=== PATIENT | male | born 1950 | race Caucasian/White ===

== ENCOUNTER 2018-10-31 09:30 | Inpatient (IN) | payer BC, MEDICAID ==
[~2018-10-31] VITALS: Ht 180.3 cm; Wt 95.6 kg
[~2018-10-31 09:30] MED LIST: LORA10CA7 PO; LORA10TA58 PO; OMEP20TA44 PO; PANT40TA2 PO
[2018-10-31] MEDS ORDERED: SODIUM CHLORIDE 0.9% 1,000 ML IV ONE (09:42)
[2018-10-31] MEDS ORDERED: AMIODARONE HCL 150 MG in D5W 5% 100 ML IV ONE (09:45)
[2018-10-31 09:56] LABS: Basophils # (auto) 0.1 uL; Basophils % (auto) 0.6 % (0.0-2.0); Eosinophils # (auto) 0.1 uL; Eosinophils % (auto) 0.6 % (0.0-7.0); Hemoglobin 16.4 g/dL (13.5-17.5); Lymphocytes # (auto) 1.4 uL; Lymphocytes % (auto) 15.4 % (10.0-50.0); Mean Corpuscular Hemoglobin 31.2 pg (28.0-32.0); Mean Corpuscular Volume 89.3 fL (80.0-100.0); Monocytes # (auto) 0.7 uL; Monocytes % (auto) 7.8 % (0.0-12.0); Neutrophils # (auto) 7.1 uL; Neutrophils % (auto) 75.6 % (37.0-80.0); Platelet Count (auto) 273 10^3/uL (140-450); Red Blood Cells 5.26 10^6/uL (4.5-5.90); Red Cell Distribution Width 13.6 % (11.8-14.3); White Blood Cell 9.4 10^3/uL (4.4-10.8)
[2018-10-31] MEDS ORDERED: AMIODARONE HCL 900 MG in DEXTROSE 500 ML IV SCH (10:00)
[2018-10-31 10:10] LABS: INR 0.97 (0.9-1.15); Partial Thromboplastin Time 26.5 sec (23.78-33.04); Prothrombin Time 10.4 sec (9.27-12.13)
[2018-10-31 10:14] LABS: Albumin 4.1 g/dL (3.4-5.0); Calcium 9.1 mg/dL (8.5-10.1); Potassium 4.2 mmol/L (3.5-5.1)
[2018-10-31] MEDS ORDERED: ASPirin 81 mg TAB PO ONE (10:15)
[2018-10-31 10:23] LABS: BUN/Creatinine Ratio 10.3; Total Protein 7.4 g/dL (6.4-8.2)
[2018-10-31] MEDS ORDERED: MORPHINE SULF INJ 2 MG/ML SYRINGE 1ML IV PRN ×2 (11:30)
[2018-10-31] MEDS ORDERED: METOPROLOL TARTRATE 25 MG TAB PO ONE (11:30)
[2018-10-31] MEDS ORDERED: HYDROcodone-ACET 5/325MG TAB PO PRN (11:30)
[2018-10-31] MEDS ORDERED: hydrALAZINE HCL 20 MG/ML VL IV PRN (11:30)
[2018-10-31] MEDS ORDERED: NITROGLYCERIN 0.4 MG SL TAB SL PRN (11:30)
[2018-10-31] MEDS ORDERED: ONDANSETRON HCL 4 MG/2 ML VIAL IV PRN (11:30)
--- NOTE | 2018-10-31 18:15 | NUR ---
REPORT Report received from Rosendo HANDLEY, awaiting for patient to arrive into room 261.
--- NOTE | 2018-10-31 18:30 | NUR ---
RECEIVED PATIENT Received patient in room 261. Patient alert and oriented X4, able to follow commands, speech appropriate and pupils reactive to light. Sinus rhythm in the 60's, pulses palpable to upper/lower extremities with no edema observed. Abdomen soft, non tender, non distended with bowel sounds present. Last bowel movement 10/31/2018 in AM per patient. IV to the left forearm 20g: good blood return and flushes easily infusing Amiodarone at 1 mg per MD orders. Skin intact. Will continue to monitor patient.
[2018-10-31 18:50] VITALS: BP 137/82
[2018-10-31 19:50] VITALS: BP 131/77
[2018-10-31] MEDS: ACETAMINOPHEN 500 MG TAB PO PRN (20:03)
[2018-10-31 21:00] VITALS: BP 141/85
[2018-10-31] MEDS: METOPROLOL TARTRATE 25 MG TAB PO SCH (21:24)
[2018-10-31] MEDS: ATORVASTATIN 20 MG TAB PO SCH (21:25)
[2018-10-31 22:00] VITALS: BP 147/76
[2018-11-01] VITALS (8 sets, daily range): BP systolic 118–138; BP diastolic 68–85
[2018-11-01 06:06] LABS: Basophils # (auto) 0 uL; Basophils % (auto) 0.3 % (0.0-2.0); Calcium 8.5 mg/dL (8.5-10.1); Eosinophils # (auto) 0.1 uL; Eosinophils % (auto) 1.8 % (0.0-7.0); Hematocrit 40.6 % (41.0-53.0); Hemoglobin 14.3 g/dL (13.5-17.5); INR 1.01 (0.9-1.15); Lymphocytes # (auto) 1.3 uL; Lymphocytes % (auto) 19.1 % (10.0-50.0); Mean Corpuscular Hemoglobin 31.4 pg (28.0-32.0); Mean Corpuscular Hgb Conc. 35.3 g/dL (32.0-36.0); Mean Corpuscular Volume 89.1 fL (80.0-100.0); Monocytes # (auto) 0.6 uL; Monocytes % (auto) 9.6 % (0.0-12.0); Neutrophils # (auto) 4.6 uL; Neutrophils % (auto) 69.2 % (37.0-80.0); Partial Thromboplastin Time 25.5 sec (23.78-33.04); Platelet Count (auto) 202 10^3/uL (140-450); Potassium 3.9 mmol/L (3.5-5.1); Prothrombin Time 10.8 sec (9.27-12.13); Red Blood Cells 4.56 10^6/uL (4.5-5.90); Red Cell Distribution Width 13.5 % (11.8-14.3); White Blood Cell 6.7 10^3/uL (4.4-10.8)
[2018-11-01 06:10] LABS: BUN/Creatinine Ratio 14.4
[2018-11-01 06:29] LABS: Magnesium 2.4 mg/dL (1.6-2.6)
--- NOTE | 2018-11-01 07:30 | NUR ---
Opening Shift Note Assumed care of patient, awake and alert, lying down on the bed watching TV. No S/S of distress/SOB or chest pain. Instructed on POC and to call for assist PRN, will continue to monitor for changes Q1hr and PRN.
--- NOTE | 2018-11-01 08:30 | NUR ---
Patient having breakfast on the bed, will continue to monitor.
--- NOTE | 2018-11-01 09:30 | NUR ---
Friends came and visited patient at this time.
[2018-11-01] MEDS: PANTOPRAZOLE 40 MG/10 ML VIAL IV SCH (09:48)
[2018-11-01] MEDS: METOPROLOL TARTRATE 25 MG TAB PO SCH ×2 (09:48→21:48)
[2018-11-01] MEDS: LISINOPRIL 10 MG TAB PO SCH (09:49)
[2018-11-01] MEDS: ASPirin-EC 81 mg tab PO SCH (09:49)
--- NOTE | 2018-11-01 10:36 | NUR ---
Patient walked ti the restroom with standby assist, no complaining of chest pain noted.
--- NOTE | 2018-11-01 12:20 | NUR ---
While patient is sleeping, his HR 55-60/min. While he is walking or wake up. his HR around 75-95/min with SR. Will continue to monitor.
--- NOTE | 2018-11-01 12:50 | NUR ---
Dr Collazo at bedside, updated on patient's status. Patient seen and examined. Received verbal order to transfer patient to Telemetry floor. Orders read back and verified. Will carry out.
--- NOTE | 2018-11-01 14:00 | NUR ---
Patient lying on the bed, no complaining of chest pain, walk to restroom occasionally, no accident noted. Will continue to monitor, His inside the room with patient, they made aware about transfer to Tele when a room available.
--- NOTE | 2018-11-01 14:50 | NUR ---
Print out and gave the information about angiogram and angiogram care after to patient and his for education at this time.
--- NOTE | 2018-11-01 16:40 | NUR ---
Patient went to the restroom, no complaining of chest pain then went back to the bed, HR 75, BP 132/85, Room air O2 saturation 98%.
[2018-11-01] MEDS: ACETAMINOPHEN 500 MG TAB PO PRN (17:04)
--- NOTE | 2018-11-01 17:06 | NUR ---
patient complained that he had a headache, medication given, take time to answer all his concern, patient verbalized understanding. Will continue plan of care.
--- NOTE | 2018-11-01 18:10 | NUR ---
ICU patient trans to floor [facility] transferred to [facility] via wheelchair on tele no. 20. All patient medications and personal belongings transferred with patient to receiving floor. Patient care transferred to [facility]. NOTE: []
--- NOTE | 2018-11-01 18:13 | NUR ---
Telemetry admit [facility] admitted to Telemetry unit after SBAR received. Patient oriented to Marissa Ma, primary RN, unit, room, bed, and unit policies regarding patient care and visiting hours. Patient now on continuous telemetry monitoring, tele box # 20 and telemetry reading on arrival to unit is SINUS RHYHTM. Pt denies need for bedside o2 at this time, VSS. Pt weighed by bedscale and encouraged to call if they need something. All questions and concerns addressed, patient verbalized understanding. No s/s of distress or sob noted, pt denies any pain at this time.
--- NOTE | 2018-11-01 19:00 | NUR ---
Patient care endorsed endorsed care to Paola boyce. Patient sitting up in bed eating dinner. No s/s of acute distress or sob noted. Call light within reach.
--- NOTE | 2018-11-01 19:33 | NUR ---
RECEIVED PATIENT FROM DAY SHIFT RN. PATIENT RESTING IN BED. NO S/S OF DISTRESS NOTED. DENIED PAIN FOR NOW. REINFORCED PATIENT NPO AFTER MIDNIGHT FOR PROCEDURE TOMORROW. POC INSTRUCTED AND ENCOURAGED PATIENT TO CALL FOR WINDOWS SYSTEMS ADMINISTRATOR IF NEEDED. BED IN LOWEST POSITION WITH SIDE RAILS UP X 2. CALL LINDA WITHIN REACH. ALARM ON. CONTINUE OT MONITOR FOR CHANGES Q1H AND PRN.
--- NOTE | 2018-11-01 21:14 | NUR ---
2ND IV insertion PER PROTOCOL IV access obtained, via clean sterile technique by inserting [22] gauge catheter at [RFA] after [1] attempt(s). IV secured properly. No trauma to site. Patient tolerated well. NOTE: []
[2018-11-01] MEDS: ATORVASTATIN 20 MG TAB PO SCH (21:47)
[2018-11-02 05:00] VITALS: BP 123/77
--- NOTE | 2018-11-02 06:05 | NUR ---
OSVALDOG WIPER DONE. GOWN CHANGED. PATIENT TOLERATED WELL. CONTINUE CARE.
--- NOTE | 2018-11-02 07:00 | NUR ---
Opening Shift Note Assumed care of patient from NOC RN. Patient is awake and alert. No S/S of distress/SOB or pain. Bed in lowest, locked position with side rails up X2. Call frankel within reach. Instructed on POC and to call for assist PRN, will continue to monitor for changes Q1hr and PRN.
[2018-11-02 08:41] VITALS: BP 132/81
[2018-11-02] MEDS: METOPROLOL TARTRATE 25 MG TAB PO SCH ×2 (09:49→21:50)
[2018-11-02] MEDS: ASPirin-EC 81 mg tab PO SCH (09:50)
[2018-11-02] MEDS: PANTOPRAZOLE 40 MG/10 ML VIAL IV SCH (09:51)
[2018-11-02] MEDS: LISINOPRIL 10 MG TAB PO SCH (09:51)
--- NOTE | 2018-11-02 11:00 | NUR ---
Plant Operations Manager Patient transported to Plant Operations Manager via hospital bed without incident.
--- NOTE | 2018-11-02 12:00 | NUR ---
Patient off unit. Addendum: 11/02/18 at 1355 by RAFAEL HAMMOND RN RN Amended: Links added.
[2018-11-02 13:08] VITALS: BP 142/77
[2018-11-02] MEDS ORDERED: VERAPAMIL 2.5MG/ML INJ 2ML VIAL IV ONE (13:50)
[2018-11-02] MEDS ORDERED: ANGIOMAX 250 MG VIAL IV ONE ×2 (13:50→14:57)
[2018-11-02] MEDS ORDERED: MIDAZOLAM HCL 1MG/1ML-2 ML VIAL ONE (13:51)
[2018-11-02] MEDS ORDERED: LIDOCAINE 2%HCL (LOCAL ANESTH.) INJ 20ML MDV ONE (13:51)
[2018-11-02] MEDS ORDERED: SODIUM CHL 0.9% 50 ML ONE ×2 (13:51→14:57)
[2018-11-02] MEDS ORDERED: fentaNYL CITRATE 100 MCG/2 ML VL ONE (13:51)
[2018-11-02] MEDS ORDERED: IOHEXOL 350 MG/ML 100ML IJ ONE (14:06)
[2018-11-02] MEDS ORDERED: CLOPIDOGREL 300 MG TAB ONE (15:04)
--- NOTE | 2018-11-02 16:00 | NUR ---
PATIENT BACK TO FLOOR S/P CARDIAC ANGIOGRAM. PATIENT TOLERATED PROCEDURE WELL. NO PAIN REPORTED AND NO SIGNS OF DISTRESS. ACCESS IS LEFT WRIST. THE SITE IS CDI. NO SIGNS OF BLEEDING. COLLAR IS CURRENTLY BEING DEFLATED AT A RATE OF 2ML PER 10 TO 15 MINUTES. WILL CONTINUE TO MONITOR SITE UNTIL THE WRIST COLLAR IS COMPLETELY DEFLATED. ENCOURAGED THE PATIENT TO CALL IF THEY NEED ANYTHING.
--- NOTE | 2018-11-02 16:57 | NUR ---
WRIST COLLAR COMPLETELY DEFLATED. NO SIGNS OF BLEEDING. COLLAR REMOVED AND TEGADERM WINDOW DRESSING PLACED TO THE LEFT WRIST. WILL CONTINUE TO MONITOR SITE. PATIENT EDUCATED ON THE SIGNS AND SYMPTOMS TO LOOK OUT FOR. PATIENT INSTRUCTED TO CALL IF ANY SIGNS APPEAR.
--- NOTE | 2018-11-02 19:00 | NUR ---
Opening Shift Note Assumed care of patient, awake and alert. No S/S of distress/SOB or pain. Instructed on POC and to call for assist PRN, will continue to monitor for changes Q1hr and PRN.
[2018-11-02] MEDS: ATORVASTATIN 20 MG TAB PO SCH (21:49)
[2018-11-02 22:00] VITALS: BP 117/69
[2018-11-03 04:55] VITALS: BP 122/68
--- NOTE | 2018-11-03 07:00 | NUR ---
Opening Shift Note Assumed care of patient, awake and alert. No S/S of distress/SOB or pain. Dressing to left wrist CDI. Instructed on POC and to call for assist PRN, will continue to monitor for changes Q1hr and PRN.
[2018-11-03 08:12] VITALS: BP 117/75
[2018-11-03] MEDS ORDERED: CLOPIDOGREL BISULFATE 75 MG TAB PO SCH (10:00)
[2018-11-03] MEDS: ASPirin-EC 81 mg tab PO SCH (10:03)
[2018-11-03] MEDS: PANTOPRAZOLE 40 MG/10 ML VIAL IV SCH (10:03)
[2018-11-03] MEDS: METOPROLOL TARTRATE 25 MG TAB PO SCH (10:04)
[2018-11-03] MEDS: LISINOPRIL 10 MG TAB PO SCH (10:04)
--- NOTE | 2018-11-03 11:44 | NUR ---
Nutrition Assessment Notes please see attached link for complete assessment Est. Needs based on BW (95 kg): 9669-0073 kcal (23-25 kcal/kgBW), 95-104 gms pro (1.0-1.1 gms/kgBW). Will continue to monitor pertinent labs and reassess nutrient need prn Addendum: 11/03/18 at [address] Amended: Links added.
[2018-11-03 11:48] VITALS: BP 113/65
[2018-11-03 16:50] VITALS: BP 117/69
--- NOTE | 2018-11-03 16:50 | NUR ---
Discharge instructions given as ordered. Encourage to follow up with PMD and Dr. Oakes as instructed. All questions and concerns addressed. Patient verbalized understanding. IV removed with catheter intact, pressure dressing applied. Telemetry unit returned to [facility]. Patient ambulated to vehicle with all personal belongings, accompanied by family member. No distress noted at time of departure.
== END 2018-11-03 16:50 | disposition home or self-care (01) | DRG 246 ==
LOC: ER 09:30 → TELE 11:18 → MERGE 11:18 → DOU IN ICU 18:29 → TELE-WESTW 11-01 18:14
PROVIDERS: ADMIT Nurse Practitioner Acute Care; ATTEND Family Medicine
PROC: 027034Z Dilation of Coronary Artery, One Artery with Drug-eluting Intraluminal Device, Percutaneous Approach (ICD-10-PCS; principal; 2018-11-02)
PROC: 4A023N7 Measurement of Cardiac Sampling and Pressure, Left Heart, Percutaneous Approach (ICD-10-PCS; 2018-11-02)
PROC: B2111ZZ Fluoroscopy of Multiple Coronary Arteries using Low Osmolar Contrast (ICD-10-PCS; 2018-11-02)
PROC: B240ZZ3 Ultrasonography of Single Coronary Artery, Intravascular (ICD-10-PCS; 2018-11-02)
DX: I21.4 Non-ST elevation (NSTEMI) myocardial infarction (principal); I50.21 Acute systolic (congestive) heart failure; I50.20 Unspecified systolic (congestive) heart failure; D68.69 Other thrombophilia; M19.90 Unspecified osteoarthritis, unspecified site; K21.9 Gastro-esophageal reflux disease without esophagitis; I25.2 Old myocardial infarction; Z82.49 Family history of ischemic heart disease and other diseases of the circulatory system; Z95.1 Presence of aortocoronary bypass graft
CPT/HCPCS: 36415; 71045; 80048; 80053; 80061; 83735; 83880; 84443; 84484; 85025; 85379; 85610; 85730; 86141; 86850; 86900; 86901; 87081; 92928; 92978; 93005; 93306; 93458; A6257; C9113; G0378; J2250; J7060

== ENCOUNTER → 2018-11-24 | Outpatient (CLI) | payer BC ==
[~2018-11-24] MED LIST changes: -LORA10TA58 PO; -OMEP20TA44 PO
[2018-11-24 10:50] LABS: Basophils # (auto) 0 uL; Basophils % (auto) 0.5 % (0.0-2.0); Eosinophils # (auto) 0.1 uL; Hematocrit 40.3 % (41.0-53.0); Hemoglobin 14.1 g/dL (13.5-17.5); Lymphocytes # (auto) 1.1 uL; Lymphocytes % (auto) 19.6 % (10.0-50.0); Mean Corpuscular Hgb Conc. 34.9 g/dL (32.0-36.0); Mean Corpuscular Volume 88.8 fL (80.0-100.0); Monocytes # (auto) 0.5 uL; Monocytes % (auto) 9.3 % (0.0-12.0); Neutrophils # (auto) 3.8 uL; Neutrophils % (auto) 68.6 % (37.0-80.0); Platelet Count (auto) 212 10^3/uL (140-450); Red Blood Cells 4.53 10^6/uL (4.5-5.90); Red Cell Distribution Width 13.1 % (11.8-14.3); White Blood Cell 5.6 10^3/uL (4.4-10.8)
[2018-11-24 11:04] LABS: INR 0.99 (0.9-1.15); Prothrombin Time 10.6 sec (9.27-12.13)
[2018-11-24 12:27] LABS: Albumin 3.9 g/dL (3.4-5.0); Calcium 8.9 mg/dL (8.5-10.1); Potassium 4.6 mmol/L (3.5-5.1)
[2018-11-24 12:30] LABS: Bilirubin, Total 1.3 mg/dL (0.2-1.0)
== END | disposition home or self-care (01) ==
LOC: LAB 10:34
PROVIDERS: ATTEND Internal Medicine
DX: Z01.810 Encounter for preprocedural cardiovascular examination (principal); I10 Essential (primary) hypertension
CPT/HCPCS: 36415; 80053; 85025; 85610

== ENCOUNTER 2018-12-01 11:12 | Inpatient (IN) | payer BC | END 2018-12-02 10:35 | disposition home or self-care (01) | LOC: CATH 11:12 → TELE-WESTW 15:26 ==

== ENCOUNTER → 2019-02-06 | Outpatient (CLI) | payer BC ==
[~2019-02-06] MED LIST changes: +ASPI-404 PO; +ATOR40TA52 PO; +CLOP75TA41 PO; +LISI-646 PO; -LORA10CA7 PO; +METO25TA5 PO; +PANT40T PO; -PANT40TA2 PO
[2019-02-06 13:07] LABS: Basophils # (auto) 0 uL; Basophils % (auto) 0.6 % (0.0-2.0); Eosinophils # (auto) 0.1 uL; Eosinophils % (auto) 1.2 % (0.0-7.0); Hematocrit 40.1 % (41.0-53.0); Hemoglobin 14.3 g/dL (13.5-17.5); Lymphocytes # (auto) 1.2 uL; Lymphocytes % (auto) 21.1 % (10.0-50.0); Mean Corpuscular Hemoglobin 31.2 pg (28.0-32.0); Mean Corpuscular Hgb Conc. 35.7 g/dL (32.0-36.0); Mean Corpuscular Volume 87.3 fL (80.0-100.0); Monocytes # (auto) 0.5 uL; Monocytes % (auto) 8.3 % (0.0-12.0); Neutrophils # (auto) 3.8 uL; Neutrophils % (auto) 68.8 % (37.0-80.0); Platelet Count (auto) 222 10^3/uL (140-450); Red Blood Cells 4.59 10^6/uL (4.5-5.90); Red Cell Distribution Width 13.2 % (11.8-14.3); White Blood Cell 5.5 10^3/uL (4.4-10.8)
[2019-02-06 13:30] LABS: Potassium 3.9 mmol/L (3.5-5.1)
[2019-02-06 13:52] LABS: Albumin 3.9 g/dL (3.4-5.0); BUN/Creatinine Ratio 13.6; Bilirubin, Total 1.3 mg/dL (0.2-1.0); Calcium 8.9 mg/dL (8.5-10.1); Total Protein 7.1 g/dL (6.4-8.2)
== END | disposition home or self-care (01) ==
LOC: LAB 12:32
PROVIDERS: ATTEND Internal Medicine
DX: K21.9 Gastro-esophageal reflux disease without esophagitis (principal); R53.83 Other fatigue; I25.10 Atherosclerotic heart disease of native coronary artery without angina pectoris
CPT/HCPCS: 36415; 80053; 84439; 84443; 85025; 86301

== ENCOUNTER → 2019-04-11 | Outpatient (CLI) | payer BC ==
[~2019-04-11] MED LIST changes: +POM PO; +SUCR1TAB38 OR
== END | disposition home or self-care (01) ==
LOC: Rad HDHVI 08:59
PROVIDERS: ATTEND Internal Medicine Cardiovascular Disease
DX: I25.119 Atherosclerotic heart disease of native coronary artery with unspecified angina pectoris (principal); R06.02 Shortness of breath
CPT/HCPCS: 93306

== ENCOUNTER → 2019-04-26 | Outpatient (CLI) | payer BC ==
[~2019-04-26] VITALS: Ht 180.3 cm; Wt 90.7 kg
[~2019-04-26] MED LIST changes: +ADENOSINE 76 MG in GIVE UN-DILUTED 0 ML IV ONE; +ADENOSINE 90 MG/30 ML INJ IV ONE
== END | disposition home or self-care (01) ==
LOC: Rad HDHVI 09:20
PROVIDERS: ATTEND Internal Medicine Cardiovascular Disease
DX: I10 Essential (primary) hypertension (principal); E78.00 Pure hypercholesterolemia, unspecified
CPT/HCPCS: 78452; 93005; 96374; 96375; A9500; J0153

== ENCOUNTER → 2019-12-07 | Outpatient (CLI) | payer BC ==
[~2019-12-07] MED LIST changes: -ADENOSINE 76 MG in GIVE UN-DILUTED 0 ML IV ONE; -ADENOSINE 90 MG/30 ML INJ IV ONE; +BUPIVACAINE HCL 0.25% P/F 10 ML VIAL ONE; +IOHEXOL 300 MG/ML 100ML BOTTLE IJ ONE; +LIDOCAINE 2%HCL (LOCAL ANESTH.) INJ 20ML MDV ONE; +methylPREDNISolone ACETATE 80 MG/ML VL ONE
== END | disposition home or self-care (01) ==
LOC: XY 09:53
PROVIDERS: ATTEND Orthopaedic Surgery
DX: M16.0 Bilateral primary osteoarthritis of hip (principal)
CPT/HCPCS: 73501; 76000; J1040; J3490; Q9967

== ENCOUNTER → 2019-12-26 | Outpatient (CLI) | payer BC ==
[~2019-12-26] MED LIST changes: -BUPIVACAINE HCL 0.25% P/F 10 ML VIAL ONE; -IOHEXOL 300 MG/ML 100ML BOTTLE IJ ONE; -LIDOCAINE 2%HCL (LOCAL ANESTH.) INJ 20ML MDV ONE; -methylPREDNISolone ACETATE 80 MG/ML VL ONE
[2019-12-26 13:39] LABS: Basophils # (auto) 0 10 ^3/uL (0-0.2); Basophils % (auto) 0.6 % (0.0-2.0); Eosinophils # (auto) 0.2 10 ^3/uL (0-0.8); Eosinophils % (auto) 3.2 % (0.0-7.0); Hematocrit 40.6 % (41.0-53.0); Hemoglobin 14.4 g/dL (13.5-17.5); Lymphocytes # (auto) 1.4 10 ^3/uL (0.4-5.4); Lymphocytes % (auto) 25.2 % (10.0-50.0); Mean Corpuscular Hemoglobin 31.3 pg (28.0-32.0); Mean Corpuscular Hgb Conc. 35.5 g/dL (32.0-36.0); Mean Corpuscular Volume 88.1 fL (80.0-100.0); Monocytes # (auto) 0.6 10 ^3/uL (0-1.3); Monocytes % (auto) 9.8 % (0.0-12.0); Neutrophils # (auto) 3.5 10 ^3/uL (1.6-8.6); Neutrophils % (auto) 61.2 % (37.0-80.0); Nucleated Red Blood Cells % 0.2 %; Platelet Count (auto) 196 10^3/uL (140-450); Red Blood Cells 4.61 10^6/uL (4.5-5.90); Red Cell Distribution Width 14.6 % (11.8-14.3); White Blood Cell 5.7 10^3/uL (4.4-10.8)
[2019-12-26 14:26] LABS: Calcium 8.7 mg/dL (8.5-10.1); Potassium 4.4 mmol/L (3.5-5.1)
[2019-12-26 14:30] LABS: Albumin 3.9 g/dL (3.4-5.0); BUN/Creatinine Ratio 15.7; Bilirubin, Total 2.4 mg/dL (0.2-1.0); Total Protein 6.8 g/dL (6.4-8.2)
== END | disposition home or self-care (01) ==
LOC: LAB 12:30
PROVIDERS: ATTEND Internal Medicine
DX: I10 Essential (primary) hypertension (principal); R53.1 Weakness; K21.9 Gastro-esophageal reflux disease without esophagitis
CPT/HCPCS: 36415; 80053; 82150; 83690; 84153; 85025; 85652

== ENCOUNTER → 2020-01-01 | Outpatient (CLI) | payer BC ==
[~2020-01-01] MED LIST changes: -ASPI-404 PO; +ASPI-543 PO; +RIVA20TA PO; +SUCR1TAB22 OR; -SUCR1TAB38 OR
== END | disposition home or self-care (01) ==
LOC: Rad HDHVI 10:47
PROVIDERS: ATTEND Internal Medicine Cardiovascular Disease
DX: I50.43 Acute on chronic combined systolic (congestive) and diastolic (congestive) heart failure (principal); I25.110 Atherosclerotic heart disease of native coronary artery with unstable angina pectoris
CPT/HCPCS: 93306

== ENCOUNTER → 2020-01-15 | Outpatient (CLI) | payer BC ==
[~2020-01-15] VITALS: Ht 180.3 cm; Wt 88.5 kg
[~2020-01-15] MED LIST changes: +ADENOSINE 74 MG in GIVE UN-DILUTED 0 ML IV ONE; +ADENOSINE 90 MG/30 ML INJ IV ONE; +ASPI-404 PO; -ASPI-543 PO; -RIVA20TA PO; -SUCR1TAB22 OR; +SUCR1TAB38 OR
== END | disposition home or self-care (01) ==
LOC: Rad HDHVI 08:28
PROVIDERS: ATTEND Internal Medicine Cardiovascular Disease
DX: I25.10 Atherosclerotic heart disease of native coronary artery without angina pectoris (principal); I10 Essential (primary) hypertension; R07.9 Chest pain, unspecified; E78.00 Pure hypercholesterolemia, unspecified; Z95.2 Presence of prosthetic heart valve; Z82.49 Family history of ischemic heart disease and other diseases of the circulatory system
CPT/HCPCS: 78452; 93005; 96374; 96375; A9500; J0153

== ENCOUNTER 2020-04-09 07:46 | Inpatient (IN) | payer BC ==
[2020-04-04 14:45] LABS: Urine WBC None Seen /hpf (0 - 3)
[2020-04-04 14:52] LABS: Urine Bacteria NONE SEEN /hpf (None Seen); Urine Blood Negative /uL (Negative); Urine Specific Gravity 1.008 (1.001-1.035)
[2020-04-04 14:54] LABS: Basophils # (auto) 0 10 ^3/uL (0-0.2); Basophils % (auto) 0.6 % (0.0-2.0); Eosinophils # (auto) 0.1 10 ^3/uL (0-0.8); Eosinophils % (auto) 2.5 % (0.0-7.0); Hematocrit 39.9 % (41.0-53.0); Hemoglobin 13.7 g/dL (13.5-17.5); Lymphocytes # (auto) 1.1 10 ^3/uL (0.4-5.4); Lymphocytes % (auto) 19.6 % (10.0-50.0); Mean Corpuscular Hemoglobin 30.4 pg (28.0-32.0); Mean Corpuscular Hgb Conc. 34.4 g/dL (32.0-36.0); Mean Corpuscular Volume 88.5 fL (80.0-100.0); Monocytes # (auto) 0.6 10 ^3/uL (0-1.3); Monocytes % (auto) 10.7 % (0.0-12.0); Neutrophils # (auto) 3.8 10 ^3/uL (1.6-8.6); Neutrophils % (auto) 66.6 % (37.0-80.0); Platelet Count (auto) 178 10^3/uL (140-450); Red Cell Distribution Width 13.3 % (11.8-14.3); White Blood Cell 5.6 10^3/uL (4.4-10.8)
[2020-04-04 15:02] LABS: INR 1.07 (0.9-1.15); Partial Thromboplastin Time 25.7 sec (23.0-31.2)
[2020-04-04 15:15] LABS: Albumin 3.7 g/dL (3.4-5.0); Calcium 8.6 mg/dL (8.5-10.1); Potassium 4.4 mmol/L (3.5-5.1)
[2020-04-04 15:19] LABS: BUN/Creatinine Ratio 12.7; Bilirubin, Total 1.5 mg/dL (0.2-1.0); Total Protein 6.2 g/dL (6.4-8.2)
[~2020-04-09] VITALS: Ht 180.3 cm; Wt 88.5 kg
[~2020-04-09 07:46] MED LIST changes: -ADENOSINE 74 MG in GIVE UN-DILUTED 0 ML IV ONE; -ADENOSINE 90 MG/30 ML INJ IV ONE; -ASPI-404 PO; -CLOP75TA41 PO; -POM PO; +RIVA20TA PO; -SUCR1TAB38 OR
[2020-04-09] MEDS ORDERED: ceFAZolin 1GM/50ML 50 ML IV ONE (09:15)
[2020-04-09] MEDS ORDERED: SUCCINYLCHOLINE CHLORIDE 20 MG/ML 10ML VIAL IV ONE (10:14)
[2020-04-09] MEDS ORDERED: LIDOCAINE 1% (LOCAL ANESTH.) PF 5ml SDV ONE (10:14)
[2020-04-09] MEDS ORDERED: MIDAZOLAM HCL 1MG/1ML-2 ML VIAL ONE (10:18)
[2020-04-09] MEDS ORDERED: ETOMIDATE (2MG/ML) 20ML VIAL IV ONE (10:19)
[2020-04-09] MEDS ORDERED: ROCURONIUM 10MG/ML 10ML VIAL IV ONE (10:19)
[2020-04-09] MEDS ORDERED: DIGOXIN (250MCG/ML) 2 ML AMPULE IV SCH (11:15)
[2020-04-09] MEDS ORDERED: MORPHINE SULF INJ 2 MG/ML SYRINGE 1ML IV PRN (11:30)
[2020-04-09] MEDS ORDERED: NITROGLYCERIN 0.4 MG SL TAB SL PRN (11:30)
[2020-04-09] MEDS: LISINOPRIL 20 MG TAB PO SCH (13:00)
[2020-04-09 16:38] VITALS: BP 116/67
[2020-04-09 21:33] VITALS: BP 140/82
[2020-04-09] MEDS: PANTOPRAZOLE 40 MG TAB PO SCH (21:34)
[2020-04-09] MEDS: ATORVASTATIN 20 MG TAB PO SCH (21:34)
[2020-04-09] MEDS: METOPROLOL TARTRATE 25 MG TAB PO SCH (21:35)
[2020-04-10 05:00] VITALS: BP 117/66
[2020-04-10 09:00] VITALS: BP 148/83
[2020-04-10] MEDS: PANTOPRAZOLE 40 MG TAB PO SCH ×2 (10:00→22:04)
[2020-04-10] MEDS: METOPROLOL TARTRATE 25 MG TAB PO SCH ×2 (10:00→22:04)
[2020-04-10] MEDS ORDERED: fentaNYL CITRATE 100 MCG/2 ML VL ONE (10:15)
[2020-04-10] MEDS ORDERED: MIDAZOLAM HCL 1MG/1ML-2 ML VIAL ONE (10:15)
[2020-04-10] MEDS ORDERED: PROPOFOL 10 MG/ML 20 ML IV ONE (10:16)
[2020-04-10] MEDS ORDERED: ETOMIDATE (2MG/ML) 20ML VIAL IV ONE (10:16)
[2020-04-10] MEDS ORDERED: DexAMETHasone SOD PHOS 10MG/1ML VIAL INJ ONE (10:16)
[2020-04-10] MEDS ORDERED: ePHEDrine SULFATE 50 MG/ML AMP ONE (10:16)
[2020-04-10] MEDS ORDERED: ROCURONIUM 10MG/ML 10ML VIAL IV ONE (10:16)
[2020-04-10] MEDS ORDERED: LIDOCAINE 2% (LOCAL ANESTH.) PF 5ml SDV ONE (10:16)
[2020-04-10] MEDS ORDERED: PHENYLEPHRINE HCL 10 MG/ML VL ONE (10:16)
[2020-04-10] MEDS ORDERED: ceFAZolin 1GM/50ML 50 ML IV ONE (10:29)
[2020-04-10] MEDS ORDERED: KETOROLAC TROMETH 30 MG/ML 1ML VIAL IV ONE (10:38)
[2020-04-10] MEDS ORDERED: GLYCOPYRROLATE 0.2 MG/ML 1ML VIAL IV ONE (10:38)
[2020-04-10] MEDS ORDERED: ONDANSETRON HCL 4 MG/2 ML VIAL IV ONE (10:38)
[2020-04-10] MEDS ORDERED: NEOSTIGMINE 1 MG/ML INJ (10mg/10ML VIAL) IV ONE (10:38)
[2020-04-10 10:40] LABS: Basophils # (auto) 0 10 ^3/uL (0-0.2); Basophils % (auto) 0.3 % (0.0-2.0); Eosinophils # (auto) 0.1 10 ^3/uL (0-0.8); Eosinophils % (auto) 1.1 % (0.0-7.0); Hematocrit 40.2 % (41.0-53.0); Hemoglobin 14.5 g/dL (13.5-17.5); Mean Corpuscular Hemoglobin 31.6 pg (28.0-32.0); Mean Corpuscular Hgb Conc. 36.1 g/dL (32.0-36.0); Mean Corpuscular Volume 87.6 fL (80.0-100.0); Monocytes # (auto) 0.4 10 ^3/uL (0-1.3); Monocytes % (auto) 7.4 % (0.0-12.0); Neutrophils # (auto) 4.1 10 ^3/uL (1.6-8.6); Neutrophils % (auto) 73.2 % (37.0-80.0); Platelet Count (auto) 157 10^3/uL (140-450); Red Blood Cells 4.58 10^6/uL (4.5-5.90); Red Cell Distribution Width 13.1 % (11.8-14.3); White Blood Cell 5.5 10^3/uL (4.4-10.8)
[2020-04-10] MEDS ORDERED: HYDROmorphone HCL 2 MG/ML VL ONE (10:54)
[2020-04-10 11:09] LABS: BUN/Creatinine Ratio 13.3; Calcium 8.5 mg/dL (8.5-10.1); Magnesium 2.4 mg/dL (1.6-2.6); Phosphorus 2.6 mg/dL (2.5-4.90)
[2020-04-10] MEDS ORDERED: HYDROmorphone HCL 2 MG/ML VL IV PRN ×2 (11:45→12:00)
[2020-04-10] MEDS ORDERED: ONDANSETRON HCL 4 MG/2 ML VIAL IV PRN ×2 (11:45→12:00)
[2020-04-10] MEDS ORDERED: ACETAMINOPHEN/CODEINE#3 (300/30mg) TAB PO PRN (11:45)
[2020-04-10] MEDS: LISINOPRIL 20 MG TAB PO SCH (12:00)
[2020-04-10] MEDS: ceFAZolin 1GM/50ML 50 ML IV SCH ×2 (14:14→22:04)
[2020-04-10 16:29] VITALS: BP 109/62
[2020-04-10 22:00] VITALS: BP 124/74
[2020-04-10] MEDS: ATORVASTATIN 20 MG TAB PO SCH (22:04)
[2020-04-11 05:00] VITALS: BP 133/73
[2020-04-11] MEDS: ceFAZolin 1GM/50ML 50 ML IV SCH (06:30)
[2020-04-11 07:21] LABS: Basophils # (auto) 0 10 ^3/uL (0-0.2); Basophils % (auto) 0.1 % (0.0-2.0); Eosinophils # (auto) 0 10 ^3/uL (0-0.8); Hematocrit 38.3 % (41.0-53.0); Hemoglobin 13.9 g/dL (13.5-17.5); Lymphocytes # (auto) 0.8 10 ^3/uL (0.4-5.4); Lymphocytes % (auto) 6.6 % (10.0-50.0); Mean Corpuscular Hemoglobin 31.7 pg (28.0-32.0); Mean Corpuscular Hgb Conc. 36.3 g/dL (32.0-36.0); Mean Corpuscular Volume 87.4 fL (80.0-100.0); Monocytes % (auto) 8.8 % (0.0-12.0); Neutrophils # (auto) 9.9 10 ^3/uL (1.6-8.6); Neutrophils % (auto) 84.5 % (37.0-80.0); Nucleated Red Blood Cells % 0.1 %; Platelet Count (auto) 182 10^3/uL (140-450); Red Blood Cells 4.38 10^6/uL (4.5-5.90); White Blood Cell 11.8 10^3/uL (4.4-10.8)
[2020-04-11 07:42] LABS: Albumin 3.3 g/dL (3.4-5.0); Calcium 8.7 mg/dL (8.5-10.1); Potassium 4.4 mmol/L (3.5-5.1)
[2020-04-11 07:47] LABS: BUN/Creatinine Ratio 14.8; Bilirubin, Total 1.4 mg/dL (0.2-1.0); Total Protein 5.8 g/dL (6.4-8.2)
[2020-04-11 09:00] VITALS: BP 126/68
[2020-04-11] MEDS: METOPROLOL TARTRATE 25 MG TAB PO SCH (09:44)
[2020-04-11] MEDS: PANTOPRAZOLE 40 MG TAB PO SCH (09:45)
[2020-04-11] MEDS: LISINOPRIL 20 MG TAB PO SCH (12:24)
[2020-04-11 13:00] VITALS: BP 122/70
[2020-04-11 16:07] VITALS: BP 122/70
== END 2020-04-11 17:00 | disposition home or self-care (01) | DRG 419 ==
LOC: SUR 07:46 → TELE-WESTW 07:47
PROVIDERS: ADMIT Surgery; ATTEND Internal Medicine
PROC: 0FT44ZZ Resection of Gallbladder, Percutaneous Endoscopic Approach (ICD-10-PCS; principal; 2020-04-10 10:38)
DX: K80.10 Calculus of gallbladder with chronic cholecystitis without obstruction (principal); I10 Essential (primary) hypertension; Z20.828 Contact with and (suspected) exposure to other viral communicable diseases; I25.10 Atherosclerotic heart disease of native coronary artery without angina pectoris; Z82.49 Family history of ischemic heart disease and other diseases of the circulatory system; Z48.89 Encounter for other specified surgical aftercare; Z90.49 Acquired absence of other specified parts of digestive tract; Z79.899 Other long term (current) drug therapy; Z79.82 Long term (current) use of aspirin; Z95.818 Presence of other cardiac implants and grafts; I48.91 Unspecified atrial fibrillation
CPT/HCPCS: 36415; 80048; 80053; 81001; 83735; 84100; 84439; 84443; 85025; 85610; 85730; 86850; 86900; 86901; G0378; J0330; J0690; J1100; J1885; J2001; J2250; J2405; J2704

== ENCOUNTER → 2020-05-15 | Outpatient (CLI) | payer BC ==
[~2020-05-15] MED LIST changes: +BUPIVACAINE HCL 0.25% P/F 10 ML VIAL ONE; +IOHEXOL 300 MG/ML 100ML BOTTLE IJ ONE; +LIDOCAINE 2%HCL (LOCAL ANESTH.) INJ 20ML MDV ONE; +methylPREDNISolone ACETATE 80 MG/ML VL ONE
== END | disposition home or self-care (01) ==
LOC: XY 09:10
PROVIDERS: ATTEND Orthopaedic Surgery Adult Reconstructive Orthopaedic Surgery
DX: M25.551 Pain in right hip (principal); Z98.890 Other specified postprocedural states; Z79.899 Other long term (current) drug therapy
CPT/HCPCS: 20610; 73502; 77002; J1040; J3490; Q9967; 76000

== ENCOUNTER → 2020-09-10 | Outpatient (CLI) | payer BC ==
[~2020-09-10] MED LIST changes: -BUPIVACAINE HCL 0.25% P/F 10 ML VIAL ONE; -IOHEXOL 300 MG/ML 100ML BOTTLE IJ ONE; -LIDOCAINE 2%HCL (LOCAL ANESTH.) INJ 20ML MDV ONE; -methylPREDNISolone ACETATE 80 MG/ML VL ONE
== END | disposition home or self-care (01) ==
LOC: Rad HDHVI 13:03
PROVIDERS: ATTEND Internal Medicine Cardiovascular Disease
DX: I25.10 Atherosclerotic heart disease of native coronary artery without angina pectoris (principal); R06.02 Shortness of breath
CPT/HCPCS: 93306

== ENCOUNTER → 2020-09-17 | Outpatient (CLI) | payer BC ==
[2020-09-17 16:43] LABS: Basophils # (auto) 0 10 ^3/uL (0-0.2); Basophils % (auto) 0.6 % (0.0-2.0); Eosinophils # (auto) 0.2 10 ^3/uL (0-0.8); Eosinophils % (auto) 2.4 % (0.0-7.0); Hematocrit 36.7 % (41.0-53.0); Hemoglobin 13.3 g/dL (13.5-17.5); Lymphocytes # (auto) 1.3 10 ^3/uL (0.4-5.4); Lymphocytes % (auto) 20.7 % (10.0-50.0); Mean Corpuscular Hemoglobin 31.6 pg (28.0-32.0); Mean Corpuscular Hgb Conc. 36.2 g/dL (32.0-36.0); Mean Corpuscular Volume 87.3 fL (80.0-100.0); Monocytes # (auto) 0.6 10 ^3/uL (0-1.3); Monocytes % (auto) 9.3 % (0.0-12.0); Neutrophils # (auto) 4.3 10 ^3/uL (1.6-8.6); Nucleated Red Blood Cells % 0.1 %; Platelet Count (auto) 233 10^3/uL (140-450); Red Cell Distribution Width 12.9 % (11.8-14.3); White Blood Cell 6.4 10^3/uL (4.4-10.8)
[2020-09-17 17:06] LABS: Albumin 3.6 g/dL (3.4-5.0); Calcium 8.3 mg/dL (8.5-10.1); Potassium 3.9 mmol/L (3.5-5.1)
[2020-09-17 17:32] LABS: BUN/Creatinine Ratio 16.3; Bilirubin, Total 1.2 mg/dL (0.2-1.0); Total Protein 7.1 g/dL (6.4-8.2)
== END | disposition home or self-care (01) ==
LOC: LAB 16:28
PROVIDERS: ATTEND Internal Medicine
DX: I10 Essential (primary) hypertension (principal); I25.10 Atherosclerotic heart disease of native coronary artery without angina pectoris
CPT/HCPCS: 36415; 80053; 85025

== ENCOUNTER → 2020-09-17 | Outpatient (CLI) | payer BC ==
[~2020-09-17] VITALS: Ht 180.3 cm; Wt 87.1 kg
[~2020-09-17] MED LIST changes: +ADENOSINE 73 MG in GIVE UN-DILUTED 0 ML IV ONE; +ADENOSINE 90 MG/30 ML INJ IV ONE
== END | disposition home or self-care (01) ==
LOC: Rad HDHVI 13:34
PROVIDERS: ATTEND Internal Medicine Cardiovascular Disease
DX: I25.10 Atherosclerotic heart disease of native coronary artery without angina pectoris (principal); I10 Essential (primary) hypertension; E78.5 Hyperlipidemia, unspecified; R07.89 Other chest pain; Z82.49 Family history of ischemic heart disease and other diseases of the circulatory system
CPT/HCPCS: 78452; 93005; 96374; 96375; A9500; J0153

== ENCOUNTER 2020-09-24 10:38 | Emergency (ER) | payer BC ==
[~2020-09-24] VITALS: Ht 180.3 cm; Wt 88.5 kg
[~2020-09-24 10:38] MED LIST changes: -ADENOSINE 73 MG in GIVE UN-DILUTED 0 ML IV ONE; -ADENOSINE 90 MG/30 ML INJ IV ONE; -LISI-646 PO; +LISI20TA28 PO
[2020-09-24] MEDS ORDERED: SODIUM CHLORIDE 0.9% 1,000 ML IV ONE (11:00)
[2020-09-24 11:17] LABS: Basophils # (auto) 0 10 ^3/uL (0-0.2); Basophils % (auto) 0.3 % (0.0-2.0); Eosinophils # (auto) 0 10 ^3/uL (0-0.8); Hematocrit 39.8 % (41.0-53.0); Hemoglobin 14.2 g/dL (13.5-17.5); Lymphocytes # (auto) 0.5 10 ^3/uL (0.4-5.4); Lymphocytes % (auto) 3.5 % (10.0-50.0); Mean Corpuscular Hemoglobin 31.3 pg (28.0-32.0); Mean Corpuscular Hgb Conc. 35.7 g/dL (32.0-36.0); Mean Corpuscular Volume 87.7 fL (80.0-100.0); Monocytes # (auto) 0.9 10 ^3/uL (0-1.3); Monocytes % (auto) 7.1 % (0.0-12.0); Neutrophils # (auto) 11.8 10 ^3/uL (1.6-8.6); Neutrophils % (auto) 89.1 % (37.0-80.0); Nucleated Red Blood Cells % 0.1 %; Red Blood Cells 4.54 10^6/uL (4.5-5.90); Red Cell Distribution Width 13.1 % (11.8-14.3); White Blood Cell 13.2 10^3/uL (4.4-10.8)
[2020-09-24 11:35] LABS: Albumin 3.8 g/dL (3.4-5.0); Chloride 109 mmol/L (98-107); Potassium 3.8 mmol/L (3.5-5.1); Sodium 141 mmol/L (136-145)
[2020-09-24 11:44] LABS: Alanine Aminotransferase 20 U/L (16-61); Alkaline Phosphatase 92 U/L (45-117); Anion Gap 5 (5-15); Aspartate Aminotransferase 18 U/L (15-37); BUN/Creatinine Ratio 23.5; Bilirubin, Total 1.2 mg/dL (0.2-1.0); Blood Urea Nitrogen 23 mg/dL (7-18); Calcium 9.1 mg/dL (8.5-10.1); Carbon Dioxide 27 mmol/L (21-32); GFR African American 98 mL/min; GFR Non-African American 81 mL/min; Glucose 99 mg/dL (74-106); INR 1.08 (0.9-1.15); Magnesium 2.4 mg/dL (1.6-2.6); Partial Thromboplastin Time 25.6 sec (23.0-31.2); Total Protein 7.3 g/dL (6.4-8.2)
[2020-09-24] MEDS ORDERED: SODIUM CHL 3% 500 ML IV ONE (12:00)
[2020-09-24 12:32] VITALS: BP 135/55
== END 2020-09-24 12:47 | disposition short-term general hospital (02) ==
LOC: ER 10:38
DX: S06.5X9A Traumatic subdural hemorrhage with loss of consciousness of unspecified duration, initial encounter (principal); I25.10 Atherosclerotic heart disease of native coronary artery without angina pectoris; Z79.1 Long term (current) use of non-steroidal anti-inflammatories (NSAID); X58.XXXA Exposure to other specified factors, initial encounter; Y93.89 Activity, other specified; Y92.89 Other specified places as the place of occurrence of the external cause; Y99.8 Other external cause status
CPT/HCPCS: 36415; 70450; 71045; 80053; 83735; 84443; 84484; 85025; 85610; 85730; 93005; 96360; 96361; 99285; J7030

== ENCOUNTER → 2020-12-17 | Outpatient (CLI) | payer BC ==
[~2020-12-17] MED LIST changes: +BUPIVACAINE HCL 0.25% P/F 10 ML VIAL ONE; +IOHEXOL 300 MG/ML 100ML BOTTLE IJ ONE; +LIDOCAINE 2%HCL (LOCAL ANESTH.) INJ 20ML MDV ONE; +methylPREDNISolone ACETATE 80 MG/ML VL ONE
== END | disposition home or self-care (01) ==
LOC: XY 09:09
PROVIDERS: ATTEND Orthopaedic Surgery Adult Reconstructive Orthopaedic Surgery
DX: M25.551 Pain in right hip (principal); Z98.890 Other specified postprocedural states; Z95.5 Presence of coronary angioplasty implant and graft
CPT/HCPCS: 20610; 73501; 77002; A4223; J1040; J3490; Q9967; 76000

== ENCOUNTER → 2021-06-24 | Day surgery (SDC) | payer BC, OTHER ==
[2021-06-22 13:45] LABS: Basophils # (auto) 0 10 ^3/uL (0-0.2); Basophils % (auto) 0.5 % (0.0-2.0); Eosinophils # (auto) 0.1 10 ^3/uL (0-0.8); Eosinophils % (auto) 1.6 % (0.0-7.0); Hematocrit 40.7 % (41.0-53.0); Hemoglobin 14.1 g/dL (13.5-17.5); Lymphocytes # (auto) 1.1 10 ^3/uL (0.4-5.4); Lymphocytes % (auto) 16.2 % (10.0-50.0); Mean Corpuscular Hemoglobin 31.3 pg (28.0-32.0); Mean Corpuscular Hgb Conc. 34.7 g/dL (32.0-36.0); Mean Corpuscular Volume 90.2 fL (80.0-100.0); Monocytes # (auto) 0.7 10 ^3/uL (0-1.3); Monocytes % (auto) 10.3 % (0.0-12.0); Neutrophils # (auto) 4.8 10 ^3/uL (1.6-8.6); Neutrophils % (auto) 71.4 % (37.0-80.0); Red Blood Cells 4.51 10^6/uL (4.5-5.90); White Blood Cell 6.8 10^3/uL (4.4-10.8)
[2021-06-22 14:47] LABS: Albumin 4.1 g/dL (3.4-5.0); Calcium 8.8 mg/dL (8.5-10.1); Potassium 4.8 mmol/L (3.5-5.1)
[2021-06-22 16:16] LABS: BUN/Creatinine Ratio 13.8; Bilirubin, Total 1.6 mg/dL (0.2-1.0); Total Protein 6.8 g/dL (6.4-8.2)
[~2021-06-24] MED LIST changes: -BUPIVACAINE HCL 0.25% P/F 10 ML VIAL ONE; -IOHEXOL 300 MG/ML 100ML BOTTLE IJ ONE; -LIDOCAINE 2%HCL (LOCAL ANESTH.) INJ 20ML MDV ONE; +LIDOCAINE VISCOUS 2% 15ML UD ONE; -RIVA20TA PO; +SUCR1SUS5 PO; -methylPREDNISolone ACETATE 80 MG/ML VL ONE
[2021-06-24] MEDS: diphenhdrAMINE HCL 50 MG/1 ML VL ONE ×2 (12:52→12:55)
[2021-06-24] MEDS: fentaNYL CITRATE 100 MCG/2 ML VL ONE ×2 (12:52→12:55)
[2021-06-24] MEDS: MIDAZOLAM HCL 5 MG/ML-1ML VIAL ONE ×2 (12:52→12:55)
[2021-06-24 13:40] VITALS: BP 105/58
== END | disposition home or self-care (01) ==
LOC: GI 11:54
PROVIDERS: ATTEND Internal Medicine Gastroenterology
DX: R10.13 Epigastric pain (principal); K21.00 Gastro-esophageal reflux disease with esophagitis, without bleeding; K29.50 Unspecified chronic gastritis without bleeding; K44.9 Diaphragmatic hernia without obstruction or gangrene; K29.80 Duodenitis without bleeding; I10 Essential (primary) hypertension; E03.9 Hypothyroidism, unspecified; Z90.49 Acquired absence of other specified parts of digestive tract; Z95.5 Presence of coronary angioplasty implant and graft; Z82.49 Family history of ischemic heart disease and other diseases of the circulatory system; Z98.890 Other specified postprocedural states; Z79.899 Other long term (current) drug therapy; Z20.822 Contact with and (suspected) exposure to COVID-19
CPT/HCPCS: 36415; 43239; 80053; 85025; 88305; 88312; 88342; J1200; J2250; J3010; J7030; U0003; 99152

== ENCOUNTER 2021-07-02 08:43 | Inpatient (IN) | payer BC ==
[2021-06-29 11:47] LABS: Basophils # (auto) 0 10 ^3/uL (0-0.2); Basophils % (auto) 0.6 % (0.0-2.0); Eosinophils # (auto) 0.1 10 ^3/uL (0-0.8); Hematocrit 39.1 % (41.0-53.0); Hemoglobin 13.8 g/dL (13.5-17.5); Lymphocytes # (auto) 1.2 10 ^3/uL (0.4-5.4); Lymphocytes % (auto) 19.5 % (10.0-50.0); Mean Corpuscular Hemoglobin 31.8 pg (28.0-32.0); Mean Corpuscular Hgb Conc. 35.3 g/dL (32.0-36.0); Mean Corpuscular Volume 90.1 fL (80.0-100.0); Monocytes # (auto) 0.5 10 ^3/uL (0-1.3); Monocytes % (auto) 7.6 % (0.0-12.0); Neutrophils # (auto) 4.4 10 ^3/uL (1.6-8.6); Neutrophils % (auto) 71.3 % (37.0-80.0); Red Blood Cells 4.34 10^6/uL (4.5-5.90); Red Cell Distribution Width 14.4 % (11.8-14.3); White Blood Cell 6.2 10^3/uL (4.4-10.8)
[2021-06-29 11:52] LABS: Urine Bacteria NONE SEEN /hpf (None Seen); Urine Blood Negative /uL (Negative); Urine Mucus FEW (None Seen); Urine Specific Gravity 1.024 (1.001-1.035); Urine WBC 3 /hpf (0 - 3)
[2021-06-29 12:37] LABS: Potassium 4.6 mmol/L (3.5-5.1)
[2021-06-29 12:43] LABS: Albumin 3.9 g/dL (3.4-5.0); BUN/Creatinine Ratio 18.1; Bilirubin, Total 1.3 mg/dL (0.2-1.0); Calcium 8.9 mg/dL (8.5-10.1); Total Protein 6.6 g/dL (6.4-8.2)
[~2021-07-02] VITALS: Ht 177.8 cm; Wt 88.0 kg
[~2021-07-02 08:43] MED LIST changes: -LIDOCAINE VISCOUS 2% 15ML UD ONE
[2021-07-02] MEDS ORDERED: ceFAZolin 1GM/50ML 100 ML IV ONE (08:59)
[2021-07-02] MEDS ORDERED: MORPHINE SULF PF 2 MG/2 ML SYRG ONE (09:43)
[2021-07-02] MEDS ORDERED: fentaNYL CITRATE 100 MCG/2 ML VL ONE (09:43)
[2021-07-02] MEDS ORDERED: MIDAZOLAM HCL 2MG/2ML 2ml VIAL (1mg/ml) ONE (09:43)
[2021-07-02] MEDS ORDERED: ONDANSETRON HCL 4 MG/2 ML VIAL ONE (09:44)
[2021-07-02] MEDS ORDERED: GLYCOPYRROLATE 0.2 MG/ML 1ML VIAL ONE (09:44)
[2021-07-02] MEDS ORDERED: PROPOFOL 10 MG/ML 20 ML IV ONE (09:44)
[2021-07-02] MEDS ORDERED: BUPIVACAINE 0.5% P/F INJ 10 ML VIAL ONE (10:00)
[2021-07-02] MEDS ORDERED: VANCOMYCIN HCL 1000 MG VL ONE (10:03)
[2021-07-02] MEDS ORDERED: TRANEXAMIC ACID 20 ML ONE (10:05)
[2021-07-02] MEDS ORDERED: FAMOTIDINE (10MG/ML) 2ML VL IV ONE (10:49)
[2021-07-02] MEDS: SODIUM CHLORIDE 0.9% 1,000 ML IV SCH ×2 (11:30→20:31)
[2021-07-02] MEDS ORDERED: ONDANSETRON HCL 4 MG/2 ML VIAL IV PRN ×3 (11:30→13:45)
[2021-07-02] MEDS ORDERED: oxyCODONE HCL 5MG TAB PO PRN ×2 (11:30)
[2021-07-02] MEDS ORDERED: HYDROmorphone HCL 2 MG/ML VL IV PRN (11:30)
[2021-07-02] MEDS ORDERED: DIGOXIN (250MCG/ML) 2 ML AMPULE IV ONE ×2 (13:15→14:00)
[2021-07-02] MEDS ORDERED: diphenhdrAMINE HCL 50 MG/1 ML VL IV PRN (13:45)
[2021-07-02] MEDS ORDERED: NITROGLYCERIN 0.4 MG SL TAB SL PRN (13:45)
[2021-07-02] MEDS ORDERED: MORPHINE SULFATE INJECTION 2 MG/ML SYRG IV PRN (13:45)
[2021-07-02] MEDS ORDERED: DexAMETHasone SOD PHOS 10MG/1ML VIAL INJ IV PRN (13:45)
[2021-07-02] MEDS ORDERED: NALOXONE HCL 0.4 MG/ML VIAL IV PRN (13:45)
[2021-07-02] MEDS: ceFAZolin 2 GM in D5W 5% 100 ML IV SCH ×2 (14:00→22:30)
[2021-07-02] MEDS: KETOROLAC TROMETH 30 MG/ML 1ML VIAL IV SCH ×2 (18:00→23:53)
[2021-07-02] MEDS: ACETAMINOPHEN 325 MG TAB PO SCH ×2 (18:00→23:55)
[2021-07-02 19:00] VITALS: BP 102/67
[2021-07-02 20:00] VITALS: BP 108/63
[2021-07-02 21:00] VITALS: BP 110/63
[2021-07-02] MEDS: AMIODARONE HCL 200 MG TAB PO SCH (21:26)
[2021-07-02 22:00] VITALS: BP_SYST 102; BP_SYST 110; BP_DIAS 63; BP_DIAS 67
[2021-07-02 22:04] LABS: Basophils # (auto) 0 10 ^3/uL (0-0.2); Basophils % (auto) 0.2 % (0.0-2.0); Eosinophils # (auto) 0 10 ^3/uL (0-0.8); Eosinophils % (auto) 0.1 % (0.0-7.0); Hematocrit 32.4 % (41.0-53.0); Hemoglobin 11.4 g/dL (13.5-17.5); Lymphocytes # (auto) 0.5 10 ^3/uL (0.4-5.4); Lymphocytes % (auto) 5.4 % (10.0-50.0); Mean Corpuscular Hemoglobin 31.9 pg (28.0-32.0); Mean Corpuscular Hgb Conc. 35.1 g/dL (32.0-36.0); Mean Corpuscular Volume 90.8 fL (80.0-100.0); Monocytes # (auto) 0.8 10 ^3/uL (0-1.3); Monocytes % (auto) 8.8 % (0.0-12.0); Neutrophils # (auto) 7.9 10 ^3/uL (1.6-8.6); Neutrophils % (auto) 85.5 % (37.0-80.0); Red Blood Cells 3.57 10^6/uL (4.5-5.90); Red Cell Distribution Width 14.3 % (11.8-14.3); White Blood Cell 9.2 10^3/uL (4.4-10.8)
[2021-07-02 22:22] LABS: BUN/Creatinine Ratio 17.6; Calcium 7.9 mg/dL (8.5-10.1); Potassium 4.2 mmol/L (3.5-5.1)
[2021-07-02 23:00] VITALS: BP 100/59
[2021-07-03] VITALS (16 sets, daily range): BP systolic 102–140; BP diastolic 52–71
[2021-07-03] MEDS: SODIUM CHLORIDE 0.9% 1,000 ML IV SCH (02:18)
[2021-07-03] MEDS: ACETAMINOPHEN 325 MG TAB PO SCH ×2 (06:30→12:00)
[2021-07-03] MEDS: KETOROLAC TROMETH 30 MG/ML 1ML VIAL IV SCH ×2 (06:31→12:00)
[2021-07-03] MEDS: AMIODARONE HCL 200 MG TAB PO SCH (09:28)
[2021-07-03] MEDS ORDERED: APIXABAN 2.5 MG TAB PO SCH (10:00)
[2021-07-03] MEDS ORDERED: PANTOPRAZOLE 40 MG TAB PO ONE (10:30)
[2021-07-03 13:46] LABS: Basophils # (auto) 0 10 ^3/uL (0-0.2); Basophils % (auto) 0.1 % (0.0-2.0); Eosinophils # (auto) 0.1 10 ^3/uL (0-0.8); Eosinophils % (auto) 1.1 % (0.0-7.0); Hematocrit 31.9 % (41.0-53.0); Hemoglobin 11.3 g/dL (13.5-17.5); Lymphocytes # (auto) 0.6 10 ^3/uL (0.4-5.4); Lymphocytes % (auto) 7.4 % (10.0-50.0); Mean Corpuscular Hemoglobin 31.9 pg (28.0-32.0); Mean Corpuscular Hgb Conc. 35.5 g/dL (32.0-36.0); Mean Corpuscular Volume 90.1 fL (80.0-100.0); Monocytes # (auto) 0.8 10 ^3/uL (0-1.3); Neutrophils # (auto) 7.2 10 ^3/uL (1.6-8.6); Neutrophils % (auto) 82.4 % (37.0-80.0); Red Blood Cells 3.54 10^6/uL (4.5-5.90); Red Cell Distribution Width 14.1 % (11.8-14.3); White Blood Cell 8.8 10^3/uL (4.4-10.8)
[2021-07-03 14:05] LABS: BUN/Creatinine Ratio 21.1; Potassium 3.7 mmol/L (3.5-5.1)
[2021-07-04] MEDS ORDERED: PANTOPRAZOLE 40 MG TAB PO SCH (10:00)
== END 2021-07-03 17:32 | disposition home or self-care (01) | DRG 470 ==
LOC: SUR 08:43 → OVERFLOW 11:28 → TELE 13:33 → CENTRAL 19:04
PROVIDERS: ADMIT Orthopaedic Surgery; ATTEND Internal Medicine
PROC: 0SR90JZ Replacement of Right Hip Joint with Synthetic Substitute, Open Approach (ICD-10-PCS; principal; 2021-07-02 10:59)
DX: M16.11 Unilateral primary osteoarthritis, right hip (principal); D62 Acute posthemorrhagic anemia; Z20.822 Contact with and (suspected) exposure to COVID-19; E78.5 Hyperlipidemia, unspecified; I10 Essential (primary) hypertension; I25.10 Atherosclerotic heart disease of native coronary artery without angina pectoris; I48.91 Unspecified atrial fibrillation; Z79.899 Other long term (current) drug therapy; Z95.5 Presence of coronary angioplasty implant and graft; Z90.49 Acquired absence of other specified parts of digestive tract
CPT/HCPCS: 36415; 72170; 73502; 76000; 80048; 80053; 81001; 85025; 86850; 86900; 86901; A4565; G0378; J0690; J1885; J2250; J2405; J2704; J3490; J7060

== ENCOUNTER → 2021-11-10 | Outpatient (CLI) | payer BC ==
[2021-11-10 12:03] LABS: Basophils # (auto) 0 10 ^3/uL (0-0.2); Basophils % (auto) 0.5 % (0.0-2.0); Eosinophils # (auto) 0.1 10 ^3/uL (0-0.8); Eosinophils % (auto) 1.8 % (0.0-7.0); Hematocrit 34.4 % (41.0-53.0); Hemoglobin 12.3 g/dL (13.5-17.5); Lymphocytes # (auto) 0.9 10 ^3/uL (0.4-5.4); Lymphocytes % (auto) 13.3 % (10.0-50.0); Mean Corpuscular Hgb Conc. 35.7 g/dL (32.0-36.0); Mean Corpuscular Volume 89.6 fL (80.0-100.0); Monocytes # (auto) 0.6 10 ^3/uL (0-1.3); Monocytes % (auto) 8.2 % (0.0-12.0); Neutrophils # (auto) 5.3 10 ^3/uL (1.6-8.6); Neutrophils % (auto) 76.2 % (37.0-80.0); Nucleated Red Blood Cells % 0.1 %; Red Blood Cells 3.83 10^6/uL (4.5-5.90); Red Cell Distribution Width 15.7 % (11.8-14.3)
[2021-11-10 12:41] LABS: Free T4 (Free Thyroxine) 1.27 ng/dL (0.89-1.76)
[2021-11-10 12:42] LABS: Prostate Specific Antigen 1.58 ng/mL (0.0-4.0)
[2021-11-10 12:44] LABS: Albumin 3.4 g/dL (3.4-5.0); BUN/Creatinine Ratio 14.3; Bilirubin, Total 1.2 mg/dL (0.2-1.0); Calcium 8.6 mg/dL (8.5-10.1); Potassium 3.7 mmol/L (3.5-5.1); Total Protein 6.1 g/dL (6.4-8.2)
[2021-11-10 13:04] LABS: Urine Bacteria NONE SEEN /hpf (None Seen); Urine Blood Negative /uL (Negative); Urine Mucus FEW (None Seen); Urine Specific Gravity 1.028 (1.001-1.035); Urine WBC 1 /hpf (0 - 3)
== END | disposition home or self-care (01) ==
LOC: LAB 11:45
PROVIDERS: ATTEND Internal Medicine
DX: I10 Essential (primary) hypertension (principal); E78.5 Hyperlipidemia, unspecified
CPT/HCPCS: 36415; 80053; 80061; 81001; 84153; 84439; 84443; 85025; 85652

== ENCOUNTER → 2022-02-15 | Outpatient (CLI) | payer BC | END | disposition home or self-care (01) | LOC: LAB 06:41 | PROVIDERS: ATTEND Internal Medicine | DX: D64.9 Anemia, unspecified (principal) | CPT/HCPCS: 82270 ==

== ENCOUNTER → 2022-05-13 | Outpatient (CLI) | payer BC ==
[2022-05-13 10:58] LABS: Basophils # (auto) 0 10 ^3/uL (0-0.2); Basophils % (auto) 0.6 % (0.0-2.0); Eosinophils # (auto) 0.1 10 ^3/uL (0-0.8); Eosinophils % (auto) 1.1 % (0.0-7.0); Hematocrit 34.8 % (41.0-53.0); Hemoglobin 12.4 g/dL (13.5-17.5); Lymphocytes # (auto) 0.7 10 ^3/uL (0.4-5.4); Lymphocytes % (auto) 11.4 % (10.0-50.0); Mean Corpuscular Hemoglobin 31.8 pg (28.0-32.0); Mean Corpuscular Hgb Conc. 35.7 g/dL (32.0-36.0); Mean Corpuscular Volume 89.2 fL (80.0-100.0); Monocytes # (auto) 0.5 10 ^3/uL (0-1.3); Monocytes % (auto) 8.9 % (0.0-12.0); Neutrophils # (auto) 4.6 10 ^3/uL (1.6-8.6); Nucleated Red Blood Cells % 0.1 %; Red Cell Distribution Width 16.2 % (11.8-14.3); White Blood Cell 5.9 10^3/uL (4.4-10.8)
[2022-05-13 11:58] LABS: Albumin 3.2 g/dL (3.4-5.0); Potassium 4.4 mmol/L (3.5-5.1)
[2022-05-13 12:03] LABS: % Iron Saturation 32.4 % (20-55); BUN/Creatinine Ratio 14.2; Bilirubin, Total 1.1 mg/dL (0.2-1.0); Calcium 8.3 mg/dL (8.5-10.1); Total Protein 6.2 g/dL (6.4-8.2)
== END | disposition home or self-care (01) ==
LOC: LAB 10:22
PROVIDERS: ATTEND Internal Medicine
DX: I10 Essential (primary) hypertension (principal); D64.9 Anemia, unspecified
CPT/HCPCS: 36415; 80053; 82607; 83540; 83550; 83615; 85025

== ENCOUNTER → 2022-07-05 | Outpatient (CLI) | payer BC ==
[~2022-07-05] VITALS: Ht 180.3 cm; Wt 88.5 kg
[~2022-07-05] MED LIST changes: +ADENOSINE 74 MG in GIVE UN-DILUTED 0 ML IV ONE; +ADENOSINE 90 MG/30 ML INJ IV ONE
== END | disposition home or self-care (01) ==
LOC: Rad HDHVI 13:00
PROVIDERS: ATTEND Internal Medicine Cardiovascular Disease
DX: I25.10 Atherosclerotic heart disease of native coronary artery without angina pectoris (principal); I25.2 Old myocardial infarction; R07.89 Other chest pain; R06.02 Shortness of breath; I48.92 Unspecified atrial flutter; I48.0 Paroxysmal atrial fibrillation; I10 Essential (primary) hypertension; E78.00 Pure hypercholesterolemia, unspecified; Z82.49 Family history of ischemic heart disease and other diseases of the circulatory system
CPT/HCPCS: 78452; 93005; 96374; 96375; A9500; J0153

== ENCOUNTER → 2022-09-15 | Outpatient (CLI) | payer BC ==
[~2022-09-15] MED LIST changes: -ADENOSINE 74 MG in GIVE UN-DILUTED 0 ML IV ONE; -ADENOSINE 90 MG/30 ML INJ IV ONE; +AMIO200T4 PO; +ATO40T PO; +CLOP75TA28 PO
== END | disposition home or self-care (01) ==
LOC: Rad HDHVI 09:49
PROVIDERS: ATTEND Internal Medicine Cardiovascular Disease
DX: Z01.818 Encounter for other preprocedural examination (principal); R94.31 Abnormal electrocardiogram [ECG] [EKG]; R06.02 Shortness of breath; I10 Essential (primary) hypertension; I25.10 Atherosclerotic heart disease of native coronary artery without angina pectoris
CPT/HCPCS: 93005; G0463

== ENCOUNTER 2022-09-16 09:59 | Day surgery (SDC) | payer BC ==
[2022-09-15 12:36] LABS: Basophils # (auto) 0 10 ^3/uL (0-0.2); Basophils % (auto) 0.4 % (0.0-2.0); Eosinophils # (auto) 0.1 10 ^3/uL (0-0.8); Eosinophils % (auto) 1.1 % (0.0-7.0); Hematocrit 36.2 % (41.0-53.0); Hemoglobin 13.1 g/dL (13.5-17.5); Lymphocytes # (auto) 0.9 10 ^3/uL (0.4-5.4); Lymphocytes % (auto) 12.8 % (10.0-50.0); Mean Corpuscular Hemoglobin 32.6 pg (28.0-32.0); Mean Corpuscular Hgb Conc. 36.2 g/dL (32.0-36.0); Mean Corpuscular Volume 89.9 fL (80.0-100.0); Monocytes # (auto) 0.6 10 ^3/uL (0-1.3); Neutrophils # (auto) 5.5 10 ^3/uL (1.6-8.6); Neutrophils % (auto) 77.7 % (37.0-80.0); Red Blood Cells 4.03 10^6/uL (4.5-5.90); Red Cell Distribution Width 15.5 % (11.8-14.3); White Blood Cell 7.1 10^3/uL (4.4-10.8)
[2022-09-15 12:55] LABS: INR 1.01 (0.9-1.15); Partial Thromboplastin Time 24.9 sec (24.6-33.4)
[2022-09-15 13:45] LABS: BUN/Creatinine Ratio 17.9; Calcium 8.7 mg/dL (8.5-10.1); Potassium 4.2 mmol/L (3.5-5.1)
[~2022-09-16] VITALS: Ht 180.3 cm; Wt 83.9 kg
[~2022-09-16 09:59] MED LIST changes: -ATOR40TA52 PO
[2022-09-16] MEDS ORDERED: ANGIOMAX 250 MG VIAL IV ONE (14:42)
[2022-09-16] MEDS ORDERED: fentaNYL CITRATE 100 MCG/2 ML VL ONE (14:42)
[2022-09-16] MEDS ORDERED: SODIUM CHL 0.9% 0 ML ONE (14:43)
[2022-09-16] MEDS ORDERED: LIDOCAINE 2%HCL (LOCAL ANESTH.) INJ 20ML MDV ONE (14:43)
[2022-09-16] MEDS ORDERED: MIDAZOLAM HCL 2MG/2ML 2ml VIAL (1mg/ml) ONE (14:43)
== END 2022-09-16 17:25 | disposition home or self-care (01) ==
LOC: CATH 09:59
PROVIDERS: ATTEND Internal Medicine Cardiovascular Disease
DX: I25.10 Atherosclerotic heart disease of native coronary artery without angina pectoris (principal); I10 Essential (primary) hypertension; E78.5 Hyperlipidemia, unspecified; Z95.5 Presence of coronary angioplasty implant and graft; Z82.49 Family history of ischemic heart disease and other diseases of the circulatory system; Z79.899 Other long term (current) drug therapy; Z20.822 Contact with and (suspected) exposure to COVID-19
CPT/HCPCS: 36415; 80048; 85025; 85610; 85730; 93458; C1894; J1644; J2250; J3010; U0003; 99152

== ENCOUNTER → 2022-11-24 | Outpatient (CLI) | payer BC ==
[2022-11-24 13:08] LABS: Urine WBC None Seen /hpf (0 - 3)
[2022-11-24 13:36] LABS: Basophils # (auto) 0 10 ^3/uL (0-0.2); Basophils % (auto) 0.3 % (0.0-2.0); Eosinophils # (auto) 0.1 10 ^3/uL (0-0.8); Eosinophils % (auto) 1.2 % (0.0-7.0); Hematocrit 38.1 % (41.0-53.0); Hemoglobin 13.3 g/dL (13.5-17.5); Lymphocytes # (auto) 1.1 10 ^3/uL (0.4-5.4); Lymphocytes % (auto) 16.1 % (10.0-50.0); Mean Corpuscular Hemoglobin 32.1 pg (28.0-32.0); Mean Corpuscular Hgb Conc. 34.9 g/dL (32.0-36.0); Mean Corpuscular Volume 91.9 fL (80.0-100.0); Monocytes # (auto) 0.6 10 ^3/uL (0-1.3); Monocytes % (auto) 8.5 % (0.0-12.0); Neutrophils # (auto) 4.9 10 ^3/uL (1.6-8.6); Neutrophils % (auto) 73.9 % (37.0-80.0); Nucleated Red Blood Cells % 0.1 %; Red Blood Cells 4.14 10^6/uL (4.5-5.90); Red Cell Distribution Width 13.5 % (11.8-14.3); Urine Bacteria NONE SEEN /hpf (None Seen); Urine Blood Negative /uL (Negative); Urine Mucus FEW (None Seen); Urine Specific Gravity 1.024 (1.001-1.035); White Blood Cell 6.6 10^3/uL (4.4-10.8)
[2022-11-24 13:52] LABS: Albumin 3.8 g/dL (3.4-5.0); Calcium 8.9 mg/dL (8.5-10.1); Potassium 4.5 mmol/L (3.5-5.1)
[2022-11-24 13:57] LABS: BUN/Creatinine Ratio 11.8 (10.0-20.0); Bilirubin, Total 1.1 mg/dL (0.2-1.0); Total Protein 6.2 g/dL (6.4-8.2)
== END | disposition home or self-care (01) ==
LOC: LAB 12:55
PROVIDERS: ATTEND Internal Medicine
DX: I25.10 Atherosclerotic heart disease of native coronary artery without angina pectoris (principal); I10 Essential (primary) hypertension
CPT/HCPCS: 36415; 80053; 80061; 81001; 84439; 84443; 85025; 85652

== ENCOUNTER 2023-01-11 07:39 | Inpatient (IN) | payer BC ==
[~2023-01-11] VITALS: Ht 180.3 cm; Wt 85.2 kg
[~2023-01-11 07:39] MED LIST changes: +AMIO200T13 PO; -AMIO200T4 PO; -LISI20TA28 PO; +LISI20TA56 PO
[2023-01-11 08:08] LABS: Basophils # (auto) 0 10 ^3/uL (0-0.2); Basophils % (auto) 0.5 % (0.0-2.0); Eosinophils # (auto) 0 10 ^3/uL (0-0.8); Eosinophils % (auto) 0.8 % (0.0-7.0); Hematocrit 41.5 % (41.0-53.0); Hemoglobin 14.4 g/dL (13.5-17.5); Lymphocytes # (auto) 0.9 10 ^3/uL (0.4-5.4); Lymphocytes % (auto) 15.5 % (10.0-50.0); Mean Corpuscular Hemoglobin 31.9 pg (28.0-32.0); Mean Corpuscular Hgb Conc. 34.7 g/dL (32.0-36.0); Mean Corpuscular Volume 91.9 fL (80.0-100.0); Monocytes # (auto) 0.5 10 ^3/uL (0-1.3); Monocytes % (auto) 8.1 % (0.0-12.0); Neutrophils # (auto) 4.6 10 ^3/uL (1.6-8.6); Neutrophils % (auto) 75.1 % (37.0-80.0); Red Blood Cells 4.51 10^6/uL (4.5-5.90); Red Cell Distribution Width 13.6 % (11.8-14.3); White Blood Cell 6.1 10^3/uL (4.4-10.8)
[2023-01-11 08:16] LABS: INR 1.09 (0.9-1.15); Partial Thromboplastin Time 25.3 SEC (24.5-34.5)
[2023-01-11 08:19] LABS: Albumin 3.9 g/dL (3.4-5.0); Calcium 8.2 mg/dL (8.5-10.1); Magnesium 2.4 mg/dL (1.6-2.6); Potassium 4.1 mmol/L (3.5-5.1)
[2023-01-11 08:22] LABS: BUN/Creatinine Ratio 14.8 (10.0-20.0); Bilirubin, Total 1.7 mg/dL (0.2-1.0); Total Protein 6.3 g/dL (6.4-8.2)
[2023-01-11 08:59] LABS: Urine Amorphous Crystal FEW /hpf (None Seen); Urine Bacteria NONE SEEN /hpf (None Seen); Urine Blood Negative /uL (Negative); Urine Mucus FEW (None Seen); Urine WBC <1 /hpf (0 - 3)
[2023-01-11] MEDS ORDERED: MORPHINE SULFATE INJ 2 MG/ml SYRG IV PRN (10:45)
[2023-01-11] MEDS ORDERED: NITROGLYCERIN 0.4 MG SL TAB SL PRN (10:45)
[2023-01-11] MEDS ORDERED: hydrALAZINE HCL 20 MG/ML VL IV ONE (11:45)
[2023-01-11] MEDS: SUCRALFATE 1 GM/10 ML ORAL SUSP PO SCH ×3 (11:59→22:20)
[2023-01-11] MEDS: LISINOPRIL 20 MG TAB PO SCH (17:21)
[2023-01-11] MEDS ORDERED: PATIENTS OWN MEDICATION (Atorvastatin Calcium (Lipitor) 1 TAB) PO SCH (18:00)
[2023-01-11] MEDS: ACETAMINOPHEN 325 MG TAB PO PRN (20:24)
[2023-01-11] MEDS: PANTOPRAZOLE 40 MG TAB PO SCH (22:20)
[2023-01-11] MEDS: ATORVASTATIN 20 MG TAB PO SCH (22:21)
[2023-01-12 05:45] LABS: Basophils # (auto) 0 10 ^3/uL (0-0.2); Basophils % (auto) 0.3 % (0.0-2.0); Eosinophils # (auto) 0.1 10 ^3/uL (0-0.8); Eosinophils % (auto) 1.1 % (0.0-7.0); Hemoglobin 14.1 g/dL (13.5-17.5); Lymphocytes # (auto) 0.7 10 ^3/uL (0.4-5.4); Lymphocytes % (auto) 14.6 % (10.0-50.0); Mean Corpuscular Hemoglobin 32.5 pg (28.0-32.0); Mean Corpuscular Hgb Conc. 35.2 g/dL (32.0-36.0); Mean Corpuscular Volume 92.4 fL (80.0-100.0); Monocytes # (auto) 0.4 10 ^3/uL (0-1.3); Monocytes % (auto) 7.9 % (0.0-12.0); Neutrophils # (auto) 3.8 10 ^3/uL (1.6-8.6); Neutrophils % (auto) 76.1 % (37.0-80.0); Nucleated Red Blood Cells % 0.2 %; Red Blood Cells 4.33 10^6/uL (4.5-5.90); Red Cell Distribution Width 14.2 % (11.8-14.3)
[2023-01-12 06:03] LABS: Albumin 3.6 g/dL (3.4-5.0); Calcium 8.9 mg/dL (8.5-10.1); Potassium 4.5 mmol/L (3.5-5.1)
[2023-01-12 06:05] LABS: BUN/Creatinine Ratio 18.2 (10.0-20.0); Bilirubin, Total 1.3 mg/dL (0.2-1.0)
[2023-01-12] MEDS: SUCRALFATE 1 GM/10 ML ORAL SUSP PO SCH ×4 (06:31→21:25)
[2023-01-12] MEDS: ACETAMINOPHEN 325 MG TAB PO PRN ×2 (06:31→12:43)
[2023-01-12] MEDS: PANTOPRAZOLE 40 MG TAB PO SCH ×2 (10:56→21:25)
[2023-01-12] MEDS: AMIODARONE HCL 200 MG TAB PO SCH (10:56)
[2023-01-12] MEDS: CLOPIDOGREL BISULFATE 75 MG TAB PO SCH (10:56)
[2023-01-12 14:27] VITALS: BP 138/71
[2023-01-12] MEDS ORDERED: RANOLAZINE ER 500 MG TAB PO ONE (14:45)
[2023-01-12 17:00] VITALS: BP 143/77
[2023-01-12] MEDS: LISINOPRIL 20 MG TAB PO SCH (17:55)
[2023-01-12] MEDS: RANOLAZINE ER 500 MG TAB PO SCH (21:25)
[2023-01-12] MEDS: ATORVASTATIN 20 MG TAB PO SCH (21:25)
[2023-01-12] MEDS: hydrALAZINE HCL 20 MG/ML VL IV PRN (21:26)
[2023-01-12 22:00] VITALS: BP 157/80
[2023-01-13] MEDS ORDERED: TEMAZEPAM 15 MG CAP PO ONE (01:00)
[2023-01-13 05:00] VITALS: BP 108/74
[2023-01-13] MEDS: SUCRALFATE 1 GM/10 ML ORAL SUSP PO SCH ×4 (06:52→22:04)
[2023-01-13 08:40] VITALS: BP 133/78
[2023-01-13] MEDS: PANTOPRAZOLE 40 MG TAB PO SCH ×2 (08:42→22:04)
[2023-01-13] MEDS: CLOPIDOGREL BISULFATE 75 MG TAB PO SCH (08:42)
[2023-01-13] MEDS: RANOLAZINE ER 500 MG TAB PO SCH ×2 (08:42→22:03)
[2023-01-13] MEDS: AMIODARONE HCL 200 MG TAB PO SCH (08:42)
[2023-01-13 10:09] LABS: Hepatitis C Antibody Negative (Negative)
[2023-01-13 12:10] VITALS: BP 150/81
[2023-01-13] MEDS: hydrALAZINE HCL 20 MG/ML VL IV PRN ×2 (12:47→18:47)
[2023-01-13] MEDS: ACETAMINOPHEN 325 MG TAB PO PRN (12:51)
[2023-01-13] MEDS ORDERED: LISI20TA56 PO (15:28)
[2023-01-13] MEDS ORDERED: METO-6 PO (15:28)
[2023-01-13] MEDS: LISINOPRIL 20 MG TAB PO SCH ×2 (15:45→22:04)
[2023-01-13] MEDS ORDERED: LACTULOSE 20Gm/30ML SOLN PO ONE (16:00)
[2023-01-13 16:57] VITALS: BP 154/80
[2023-01-13 22:00] VITALS: BP 116/69
[2023-01-13] MEDS: ATORVASTATIN 20 MG TAB PO SCH (22:04)
[2023-01-14 05:00] VITALS: BP 150/82
[2023-01-14] MEDS: hydrALAZINE HCL 20 MG/ML VL IV PRN (05:49)
[2023-01-14] MEDS: SUCRALFATE 1 GM/10 ML ORAL SUSP PO SCH ×2 (06:23→11:30)
[2023-01-14 08:00] VITALS: BP 117/62
[2023-01-14 08:45] VITALS: BP 117/62
[2023-01-14] MEDS: CLOPIDOGREL BISULFATE 75 MG TAB PO SCH (09:32)
[2023-01-14] MEDS: PANTOPRAZOLE 40 MG TAB PO SCH (09:32)
[2023-01-14] MEDS: RANOLAZINE ER 500 MG TAB PO SCH (09:33)
[2023-01-14] MEDS: LISINOPRIL 20 MG TAB PO SCH (09:33)
[2023-01-14] MEDS: AMIODARONE HCL 200 MG TAB PO SCH (09:33)
[2023-01-14] MEDS ORDERED: NIFEdipine ER 30 MG TAB PO SCH (10:00)
[2023-01-14] MEDS ORDERED: METOPROLOL SUCCINATE XL 50 MG TAB PO SCH (10:00)
[2023-01-14 13:00] VITALS: BP 130/76
[2023-01-14 14:06] VITALS: BP 130/76
== END 2023-01-14 14:59 | disposition home or self-care (01) | DRG 313 ==
LOC: ER 07:39 → TELE 10:42 → TELE-WESTW 01-12 14:21
PROVIDERS: ADMIT Nurse Practitioner Family; ATTEND Internal Medicine Geriatric Medicine
DX: R07.89 Other chest pain (principal); I48.91 Unspecified atrial fibrillation; K21.9 Gastro-esophageal reflux disease without esophagitis; E78.5 Hyperlipidemia, unspecified; I25.10 Atherosclerotic heart disease of native coronary artery without angina pectoris; I11.9 Hypertensive heart disease without heart failure; Z96.641 Presence of right artificial hip joint; R51.9 Headache, unspecified; Z82.49 Family history of ischemic heart disease and other diseases of the circulatory system; Z95.5 Presence of coronary angioplasty implant and graft
CPT/HCPCS: 36415; 70450; 71045; 80053; 81001; 83735; 83880; 84484; 85025; 85610; 85730; 86803; 87340; 93005; 93306; 93886; G0378

== ENCOUNTER → 2023-05-02 | Outpatient (CLI) | payer BC ==
[~2023-05-02] VITALS: Ht 180.3 cm; Wt 77.1 kg
[~2023-05-02] MED LIST changes: +ADENOSINE 65 MG in GIVE UN-DILUTED 0 ML IV ONE; +ADENOSINE 90 MG/30 ML INJ IV ONE; +METO-6 PO; -METO25TA5 PO
== END | disposition home or self-care (01) ==
LOC: Rad HDHVI 12:53
PROVIDERS: ATTEND Internal Medicine Cardiovascular Disease
DX: Z01.810 Encounter for preprocedural cardiovascular examination (principal); I25.10 Atherosclerotic heart disease of native coronary artery without angina pectoris; E78.5 Hyperlipidemia, unspecified; I10 Essential (primary) hypertension; R00.2 Palpitations; R06.01 Orthopnea; Z82.49 Family history of ischemic heart disease and other diseases of the circulatory system
CPT/HCPCS: 78452; 93005; 96374; 96375; A9500; J0153

== ENCOUNTER → 2023-07-05 | Outpatient (CLI) | payer BC ==
[~2023-07-05] MED LIST changes: -ADENOSINE 65 MG in GIVE UN-DILUTED 0 ML IV ONE; -ADENOSINE 90 MG/30 ML INJ IV ONE
[2023-07-05 15:13] LABS: Basophils # (auto) 0 10 ^3/uL (0-0.2); Basophils % (auto) 0.6 % (0.0-2.0); Eosinophils # (auto) 0.1 10 ^3/uL (0-0.8); Eosinophils % (auto) 1.6 % (0.0-7.0); Hematocrit 35.5 % (41.0-53.0); Hemoglobin 12.2 g/dL (13.5-17.5); Lymphocytes # (auto) 0.8 10 ^3/uL (0.4-5.4); Lymphocytes % (auto) 14.5 % (10.0-50.0); Mean Corpuscular Hemoglobin 32.2 pg (28.0-32.0); Mean Corpuscular Hgb Conc. 34.5 g/dL (32.0-36.0); Mean Corpuscular Volume 93.4 fL (80.0-100.0); Monocytes # (auto) 0.6 10 ^3/uL (0-1.3); Monocytes % (auto) 11.1 % (0.0-12.0); Neutrophils # (auto) 4.1 10 ^3/uL (1.6-8.6); Neutrophils % (auto) 72.2 % (37.0-80.0); Red Cell Distribution Width 14.7 % (11.8-14.3); White Blood Cell 5.7 10^3/uL (4.4-10.8)
[2023-07-05 17:37] LABS: Alanine Aminotransferase 18 U/L (7-40); Alkaline Phosphatase 84 U/L (46-116); Anion Gap 3 (5-15); Aspartate Aminotransferase 18 U/L (13-40); Bilirubin, Total 0.8 mg/dL (0.2-1.0); Blood Urea Nitrogen 13 mg/dL (9-23); Calcium 8.7 mg/dL (8.7-10.4); Carbon Dioxide 30 mmol/L (20-30); Chloride 108 mmol/L (98-107); Glucose 105 mg/dL (74-106); Potassium 4.1 mmol/L (3.5-5.1); Prostate Specific Antigen 1.08 ng/mL (0.0-4.0); Sodium 141 mmol/L (136-145); Total Protein 5.9 g/dL (5.7-8.2)
== END | disposition home or self-care (01) ==
LOC: LAB 14:57
PROVIDERS: ATTEND Internal Medicine
DX: I25.10 Atherosclerotic heart disease of native coronary artery without angina pectoris (principal); E55.9 Vitamin D deficiency, unspecified; N40.0 Benign prostatic hyperplasia without lower urinary tract symptoms; I10 Essential (primary) hypertension; E78.5 Hyperlipidemia, unspecified
CPT/HCPCS: 36415; 80053; 82306; 82607; 84153; 85025

== ENCOUNTER → 2023-09-16 | Outpatient (CLI) | payer BC ==
[2023-09-16 14:38] LABS: Basophils # (auto) 0 10 ^3/uL (0-0.2); Basophils % (auto) 0.4 % (0.0-2.0); Eosinophils # (auto) 0 10 ^3/uL (0-0.8); Eosinophils % (auto) 0.3 % (0.0-7.0); Hematocrit 36.9 % (41.0-53.0); Hemoglobin 12.9 g/dL (13.5-17.5); Lymphocytes # (auto) 0.8 10 ^3/uL (0.4-5.4); Mean Corpuscular Hemoglobin 32.1 pg (28.0-32.0); Mean Corpuscular Hgb Conc. 34.9 g/dL (32.0-36.0); Mean Corpuscular Volume 91.9 fL (80.0-100.0); Monocytes # (auto) 0.7 10 ^3/uL (0-1.3); Monocytes % (auto) 9.8 % (0.0-12.0); Neutrophils # (auto) 6.1 10 ^3/uL (1.6-8.6); Neutrophils % (auto) 79.5 % (37.0-80.0); Red Blood Cells 4.01 10^6/uL (4.5-5.90); Red Cell Distribution Width 14.5 % (11.8-14.3); White Blood Cell 7.6 10^3/uL (4.4-10.8)
[2023-09-16 15:07] LABS: Alanine Aminotransferase 23 U/L (7-40); Albumin 4.3 g/dL (3.2-4.8); Alkaline Phosphatase 84 U/L (46-116); Anion Gap 3 (5-15); Aspartate Aminotransferase 21 U/L (13-40); BUN/Creatinine Ratio 11.7 (10.0-20.0); Bilirubin, Total 1.5 mg/dL (0.2-1.0); Blood Urea Nitrogen 12 mg/dL (9-23); Calcium 9.6 mg/dL (8.5-10.1); Carbon Dioxide 29 mmol/L (20-30); Chloride 100 mmol/L (98-107); Glucose 93 mg/dL (74-106); Potassium 4.4 mmol/L (3.5-5.1); Sodium 132 mmol/L (136-145); Total Protein 6.6 g/dL (5.7-8.2)
== END | disposition home or self-care (01) ==
LOC: LAB 14:24
PROVIDERS: ATTEND Internal Medicine
DX: K21.9 Gastro-esophageal reflux disease without esophagitis (principal)
CPT/HCPCS: 36415; 80053; 85025

== ENCOUNTER 2023-09-27 05:28 | Inpatient (IN) | payer BC ==
[~2023-09-27] VITALS: Ht 180.3 cm; Wt 79.0 kg
[2023-09-27 07:13] LABS: Chloride 86 mmol/L (98-107); Potassium 3.9 mmol/L (3.5-5.1); Sodium 120 mmol/L (136-145)
[2023-09-27 07:14] LABS: Anion Gap 5 (5-15); Calcium 9.2 mg/dL (8.5-10.1); Carbon Dioxide 29 mmol/L (20-30)
[2023-09-27 07:19] LABS: BUN/Creatinine Ratio 19.3 (10.0-20.0); Blood Urea Nitrogen 17 mg/dL (9-23); Glucose 119 mg/dL (74-106)
[2023-09-27 08:04] LABS: Basophils # (auto) 0 10 ^3/uL (0-0.2); Basophils % (auto) 0.1 % (0.0-2.0); Eosinophils # (auto) 0 10 ^3/uL (0-0.8); Eosinophils % (auto) 0.1 % (0.0-7.0)
[2023-09-27 08:05] LABS: Hematocrit 35.5 % (41.0-53.0); Hemoglobin 12.8 g/dL (13.5-17.5); Lymphocytes # (auto) 0.5 10 ^3/uL (0.4-5.4); Lymphocytes % (auto) 5.1 % (10.0-50.0); Mean Corpuscular Hemoglobin 32.2 pg (28.0-32.0); Mean Corpuscular Hgb Conc. 36.1 g/dL (32.0-36.0); Mean Corpuscular Volume 89.1 fL (80.0-100.0); Monocytes # (auto) 1.3 10 ^3/uL (0-1.3); Monocytes % (auto) 12.7 % (0.0-12.0); Neutrophils # (auto) 8.1 10 ^3/uL (1.6-8.6); Nucleated Red Blood Cells % 0.1 %; Red Blood Cells 3.99 10^6/uL (4.5-5.90); White Blood Cell 9.9 10^3/uL (4.4-10.8)
[2023-09-27] MEDS: SODIUM CHLORIDE 0.9% 1,000 ML IV ONE (09:00)
[2023-09-27] MEDS ORDERED: ACETAMINOPHEN 325 MG TAB PO PRN (09:45)
[2023-09-27] MEDS ORDERED: MECLIZINE HCL 25 MG TAB PO PRN (09:45)
[2023-09-27] MEDS ORDERED: NITROGLYCERIN 0.4 MG SL TAB SL PRN (09:45)
[2023-09-27] MEDS ORDERED: ONDANSETRON HCL 4 MG/2 ML VIAL IV PRN (09:45)
[2023-09-27] MEDS ORDERED: MORPHINE SULFATE INJ 2 MG/ml SYRG IV PRN (09:45)
[2023-09-27 09:57] LABS: Triglycerides 58 mg/dL (< 150)
[2023-09-27 09:58] LABS: LDL Cholesterol 33 mg/dL (< 100)
[2023-09-27 09:59] LABS: Cholesterol 97 mg/dL (< 200); HDL Cholesterol 48 mg/dL (40-59)
[2023-09-27] MEDS ORDERED: LISINOPRIL 20 MG TAB PO SCH (10:00)
[2023-09-27] MEDS: SUCRALFATE 1 GM/10 ML ORAL SUSP PO SCH (11:30)
[2023-09-27] MEDS: PANTOPRAZOLE 40 MG TAB PO ONE (12:00)
[2023-09-27] MEDS: CLOPIDOGREL BISULFATE 75 MG TAB PO SCH (12:00)
[2023-09-27] MEDS: ENOXAPARIN SOD 40 MG/0.4 ML SYRINGE SC SCH (12:00)
[2023-09-27] MEDS: AMIODARONE HCL 200 MG TAB PO SCH (12:00)
[2023-09-27 16:18] LABS: Urine Bacteria NONE SEEN /hpf (None Seen); Urine Blood Negative /uL (Negative); Urine Clarity HAZY (Clear); Urine Color Yellow (Yellow); Urine Mucus MANY (None Seen); Urine Protein, UAD 1+ (Negative); Urine Specific Gravity 1.025 (1.001-1.035); Urine WBC 1 /hpf (0 - 3)
[2023-09-27 16:26] LABS: Amphetamine Screen, Urine Neg (NEGATIVE)
[2023-09-27 16:27] LABS: Barbiturate Scree,Urine Neg (NEGATIVE); Benzodiazephine Screen, Urine Neg (NEGATIVE); Cocaine Screen, Urine Neg (NEGATIVE); Opiate Scree,Urine Neg (NEGATIVE); Phencyclidine Screen, Urine Neg (NEGATIVE)
[2023-09-27 16:28] LABS: Cannabinoid Screen, Urine Neg (NEGATIVE)
[2023-09-27] MEDS: SODIUM CHLORIDE 0.9% 1,000 ML IV SCH (20:55)
[2023-09-27] MEDS: ATORVASTATIN 20 MG TAB PO SCH (23:40)
[2023-09-28] VITALS (8 sets, daily range): BP systolic 109–142; BP diastolic 58–67; PULSE 60–80; RESP 16–18; TEMP 97.6–98.4; O2SAT 95–100
[2023-09-28] MEDS ORDERED: RANO500T3 PO (01:57)
[2023-09-28 06:18] LABS: Basophils # (auto) 0 10 ^3/uL (0-0.2); Eosinophils # (auto) 0 10 ^3/uL (0-0.8); Eosinophils % (auto) 0.1 % (0.0-7.0); Hemoglobin 11.6 g/dL (13.5-17.5); Lymphocytes # (auto) 0.5 10 ^3/uL (0.4-5.4); Monocytes # (auto) 0.9 10 ^3/uL (0-1.3)
[2023-09-28 06:20] LABS: Basophils % (auto) 0.1 % (0.0-2.0); Hematocrit 31.5 % (41.0-53.0); Lymphocytes % (auto) 6.7 % (10.0-50.0); Mean Corpuscular Hemoglobin 32.8 pg (28.0-32.0); Mean Corpuscular Volume 88.7 fL (80.0-100.0); Monocytes % (auto) 11.4 % (0.0-12.0); Neutrophils # (auto) 6.5 10 ^3/uL (1.6-8.6); Neutrophils % (auto) 81.7 % (37.0-80.0); Red Blood Cells 3.55 10^6/uL (4.5-5.90); Red Cell Distribution Width 14.9 % (11.8-14.3)
[2023-09-28 06:44] LABS: Alanine Aminotransferase 19 U/L (7-40); Albumin 3.5 g/dL (3.2-4.8); Alkaline Phosphatase 69 U/L (46-116); Anion Gap 4 (5-15); Aspartate Aminotransferase 21 U/L (13-40); BUN/Creatinine Ratio 12.7 (10.0-20.0); Blood Urea Nitrogen 10 mg/dL (9-23); Calcium 8.4 mg/dL (8.5-10.1); Carbon Dioxide 28 mmol/L (20-30); Chloride 94 mmol/L (98-107); Glucose 100 mg/dL (74-106); Potassium 3.8 mmol/L (3.5-5.1)
[2023-09-28 06:45] LABS: Bilirubin, Total 1.3 mg/dL (0.2-1.0)
[2023-09-28 06:56] LABS: Sodium 126 mmol/L (136-145)
[2023-09-28] MEDS: PANTOPRAZOLE 40 MG TAB PO SCH (08:57)
[2023-09-29 01:00] VITALS: BP 129/66; PULSE 68; RESP 16; TEMP 98.6; O2SAT 100
[2023-09-29 05:00] VITALS: BP 120/62; PULSE 70; RESP 18; TEMP 98.4; O2SAT 99
[2023-09-29 05:32] LABS: Basophils # (auto) 0 10 ^3/uL (0-0.2); Basophils % (auto) 0.3 % (0.0-2.0); Eosinophils # (auto) 0 10 ^3/uL (0-0.8); Eosinophils % (auto) 0.1 % (0.0-7.0); Hemoglobin 11.6 g/dL (13.5-17.5); Lymphocytes # (auto) 0.4 10 ^3/uL (0.4-5.4); Mean Corpuscular Hemoglobin 32.8 pg (28.0-32.0); Mean Corpuscular Hgb Conc. 36.2 g/dL (32.0-36.0); Mean Corpuscular Volume 90.7 fL (80.0-100.0); Monocytes # (auto) 0.9 10 ^3/uL (0-1.3); Monocytes % (auto) 10.8 % (0.0-12.0); Neutrophils # (auto) 6.8 10 ^3/uL (1.6-8.6); Neutrophils % (auto) 83.8 % (37.0-80.0); Red Blood Cells 3.53 10^6/uL (4.5-5.90); Red Cell Distribution Width 15.1 % (11.8-14.3); White Blood Cell 8.1 10^3/uL (4.4-10.8)
[2023-09-29 05:51] LABS: Alanine Aminotransferase 16 U/L (7-40); Albumin 3.4 g/dL (3.2-4.8); Alkaline Phosphatase 83 U/L (46-116); Anion Gap 6 (5-15); Aspartate Aminotransferase 16 U/L (13-40); BUN/Creatinine Ratio 12.7 (10.0-20.0); Blood Urea Nitrogen 10 mg/dL (9-23); Calcium 8.4 mg/dL (8.5-10.1); Carbon Dioxide 27 mmol/L (20-30); Chloride 100 mmol/L (98-107); Glucose 113 mg/dL (74-106); Potassium 3.4 mmol/L (3.5-5.1); Total Protein 4.9 g/dL (5.7-8.2)
[2023-09-29 05:57] LABS: Sodium 133 mmol/L (136-145)
[2023-09-29 08:00] VITALS: PULSE 54; PULSE 65; RESP 16; RESP 17; O2SAT 95
[2023-09-29 09:00] VITALS: BP 118/58; PULSE 65; RESP 18; TEMP 97.6; O2SAT 98
[2023-09-29] MEDS: POTASSIUM CHL 20 Meq TABLET PO ONE (09:20)
[2023-09-29 14:29] VITALS: TEMP 36.4
== END 2023-09-29 16:44 | disposition home or self-care (01) | DRG 69 ==
LOC: EDBD 05:28 → ER 05:28 → EEVIPCON 09:38 → TELE 09:38 → TELE-CENTR 23:38
PROVIDERS: ADMIT Internal Medicine; ATTEND Emergency Medicine
DX: G45.9 Transient cerebral ischemic attack, unspecified (principal); G93.41 Metabolic encephalopathy; E87.1 Hypo-osmolality and hyponatremia; E86.0 Dehydration; K21.9 Gastro-esophageal reflux disease without esophagitis; I10 Essential (primary) hypertension; E78.5 Hyperlipidemia, unspecified; Z96.649 Presence of unspecified artificial hip joint; F17.200 Nicotine dependence, unspecified, uncomplicated; E11.9 Type 2 diabetes mellitus without complications; I25.10 Atherosclerotic heart disease of native coronary artery without angina pectoris; Z79.02 Long term (current) use of antithrombotics/antiplatelets; Z86.73 Personal history of transient ischemic attack (TIA), and cerebral infarction without residual deficits; Z82.49 Family history of ischemic heart disease and other diseases of the circulatory system
CPT/HCPCS: 36415; 70450; 80048; 80053; 80061; 80307; 81001; 82607; 83036; 84443; 84484; 85025; 93005; 93306; 93886; 96360; 97110; 97116; 97163; 99291; G0378

== ENCOUNTER → 2023-12-05 | Outpatient (CLI) | payer BC ==
[~2023-12-05] MED LIST changes: -ATO40T PO; +ATOR-507 PO; -METO-6 PO; +RANO500T3 PO
[2023-12-05 12:30] LABS: Basophils # (auto) 0 10 ^3/uL (0-0.2); Basophils % (auto) 0.5 % (0.0-2.0); Eosinophils # (auto) 0.1 10 ^3/uL (0-0.8); Eosinophils % (auto) 1.1 % (0.0-7.0); Hematocrit 33.3 % (41.0-53.0); Hemoglobin 11.8 g/dL (13.5-17.5); Lymphocytes # (auto) 0.9 10 ^3/uL (0.4-5.4); Lymphocytes % (auto) 13.3 % (10.0-50.0); Mean Corpuscular Hemoglobin 32.9 pg (28.0-32.0); Mean Corpuscular Hgb Conc. 35.3 g/dL (32.0-36.0); Mean Corpuscular Volume 93.2 fL (80.0-100.0); Monocytes # (auto) 0.7 10 ^3/uL (0-1.3); Monocytes % (auto) 9.7 % (0.0-12.0); Neutrophils # (auto) 5.2 10 ^3/uL (1.6-8.6); Neutrophils % (auto) 75.4 % (37.0-80.0); Red Blood Cells 3.57 10^6/uL (4.5-5.90); Red Cell Distribution Width 14.4 % (11.8-14.3); White Blood Cell 6.9 10^3/uL (4.4-10.8)
[2023-12-05 12:58] LABS: % Iron Saturation 33.7 % (20-55)
[2023-12-05 13:01] LABS: Erythrocyte Sedimentation Rate 2 mm/hr (0-20)
[2023-12-05 13:09] LABS: Alanine Aminotransferase 16 U/L (7-40); Alkaline Phosphatase 95 U/L (46-116); Anion Gap 4 (5-15); Blood Urea Nitrogen 15 mg/dL (9-23); Calcium 9.3 mg/dL (8.5-10.1); Carbon Dioxide 27 mmol/L (20-30); Chloride 105 mmol/L (98-107); Glucose 100 mg/dL (74-106); Potassium 4.3 mmol/L (3.5-5.1); Sodium 136 mmol/L (136-145)
[2023-12-05 13:10] LABS: Albumin 3.9 g/dL (3.2-4.8); Aspartate Aminotransferase 19 U/L (13-40)
[2023-12-05 13:11] LABS: Bilirubin, Total 1.2 mg/dL (0.2-1.0); Total Protein 5.7 g/dL (5.7-8.2)
== END | disposition home or self-care (01) ==
LOC: LAB 11:58
PROVIDERS: ATTEND Internal Medicine
DX: D64.9 Anemia, unspecified (principal); K21.9 Gastro-esophageal reflux disease without esophagitis
CPT/HCPCS: 36415; 80053; 82607; 83540; 83550; 85025; 85652

== ENCOUNTER 2023-12-09 09:07 | Day surgery (SDC) | payer BC ==
[2023-12-07 15:14] LABS: Urine Bacteria None Seen /hpf (None Seen)
[2023-12-07 15:33] LABS: INR 1.05 (0.9-1.15); Partial Thromboplastin Time 24.4 SEC (24.5-34.5); Prothrombin Time 11.1 sec (9.3-11.8)
[2023-12-07 15:36] LABS: Urine Blood Negative /uL (Negative); Urine Clarity Clear (Clear); Urine Color Yellow (Yellow); Urine Mucus FEW (None Seen); Urine Protein, UAD Negative (Negative); Urine Specific Gravity 1.028 (1.001-1.035); Urine Urobilinogen Normal (Negative); Urine WBC <1 /hpf (0 - 3); Urine pH 5.5 (5.0-9.0)
[~2023-12-09] VITALS: Ht 180.3 cm; Wt 76.7 kg
[~2023-12-09 09:07] MED LIST changes: +CETI10CA PO; +LACTCAP35 OR
[2023-12-09] MEDS ORDERED: MIDAZOLAM HCL 2MG/2ML 2ml VIAL (1mg/ml) ONE (09:26)
[2023-12-09] MEDS ORDERED: fentaNYL CITRATE 100 MCG/2 ML VL ONE (09:26)
[2023-12-09] MEDS ORDERED: GLYCOPYRROLATE 0.2 MG/ML 1ML VIAL ONE (09:27)
[2023-12-09] MEDS ORDERED: PROPOFOL 10 MG/ML 20 ML IV ONE (09:27)
[2023-12-09] MEDS ORDERED: ONDANSETRON HCL 4 MG/2 ML VIAL ONE (09:27)
[2023-12-09] MEDS ORDERED: HYDROmorphone HCL 2 MG/ML VL/or syr IV PRN (09:30)
[2023-12-09] MEDS ORDERED: ONDANSETRON HCL 4 MG/2 ML VIAL IV ONE (09:30)
[2023-12-09] MEDS ORDERED: KETAMINE 50mg/ML 1ml syringe ONE (09:42)
[2023-12-09 10:22] VITALS: TEMP 97.2; O2SAT 98
[2023-12-09 11:05] VITALS: BP 126/71; PULSE 63; RESP 15; O2SAT 98
== END 2023-12-09 11:10 | disposition home or self-care (01) ==
LOC: GI 09:07
PROVIDERS: ATTEND Internal Medicine Gastroenterology
DX: R63.4 Abnormal weight loss (principal); K21.00 Gastro-esophageal reflux disease with esophagitis, without bleeding; K31.7 Polyp of stomach and duodenum; K29.50 Unspecified chronic gastritis without bleeding; K63.89 Other specified diseases of intestine; K57.30 Diverticulosis of large intestine without perforation or abscess without bleeding; K64.8 Other hemorrhoids; I25.10 Atherosclerotic heart disease of native coronary artery without angina pectoris; E11.9 Type 2 diabetes mellitus without complications; I10 Essential (primary) hypertension; E78.5 Hyperlipidemia, unspecified; I48.91 Unspecified atrial fibrillation; Z95.5 Presence of coronary angioplasty implant and graft; Z96.641 Presence of right artificial hip joint; Z79.899 Other long term (current) drug therapy; Z98.890 Other specified postprocedural states
CPT/HCPCS: 36415; 43239; 45378; 81001; 85610; 85730; 88305; 88312; 88342; J2250; J2405; J2704; J3010; J7030

== ENCOUNTER → 2024-01-03 | Outpatient (CLI) | payer BC ==
[2024-01-03 13:48] LABS: Basophils # (auto) 0 10 ^3/uL (0-0.2); Basophils % (auto) 0.5 % (0.0-2.0); Eosinophils # (auto) 0.1 10 ^3/uL (0-0.8); Eosinophils % (auto) 1.2 % (0.0-7.0); Hematocrit 35.9 % (41.0-53.0); Hemoglobin 12.7 g/dL (13.5-17.5); Lymphocytes # (auto) 0.9 10 ^3/uL (0.4-5.4); Mean Corpuscular Hemoglobin 32.5 pg (28.0-32.0); Mean Corpuscular Hgb Conc. 35.4 g/dL (32.0-36.0); Mean Corpuscular Volume 91.9 fL (80.0-100.0); Monocytes # (auto) 0.6 10 ^3/uL (0-1.3); Monocytes % (auto) 9.2 % (0.0-12.0); Neutrophils # (auto) 4.7 10 ^3/uL (1.6-8.6); Neutrophils % (auto) 75.1 % (37.0-80.0); Nucleated Red Blood Cells % 0.1 %; Red Cell Distribution Width 13.9 % (11.8-14.3); White Blood Cell 6.2 10^3/uL (4.4-10.8)
[2024-01-03 14:34] LABS: % Iron Saturation 25.4 % (20-55)
[2024-01-03 14:36] LABS: Alanine Aminotransferase 16 U/L (7-40); Alkaline Phosphatase 87 U/L (46-116); Anion Gap 5 (5-15); Aspartate Aminotransferase 14 U/L (13-40); Blood Urea Nitrogen 13 mg/dL (9-23); Calcium 9.5 mg/dL (8.5-10.1); Carbon Dioxide 27 mmol/L (20-30); Chloride 105 mmol/L (98-107); Glucose 105 mg/dL (74-106); Sodium 137 mmol/L (136-145)
[2024-01-03 14:39] LABS: Ferritin 99.3 ng/mL (22-322); Folate (Folic Acid) 14.45 ng/mL (>5.38)
[2024-01-05 08:50] LABS: Hepatitis B Surface Antigen Negative (Negative)
[2024-01-05 09:12] LABS: Hepatitis C Antibody Negative (Negative)
== END | disposition home or self-care (01) ==
LOC: LAB 13:31
PROVIDERS: ATTEND Internal Medicine Gastroenterology
DX: R94.5 Abnormal results of liver function studies (principal); D64.9 Anemia, unspecified
CPT/HCPCS: 36415; 80053; 82607; 82728; 82746; 83540; 83550; 85025; 86038; 86803; 87340

== ENCOUNTER → 2024-01-23 | Outpatient (CLI) | payer BC | END | disposition home or self-care (01) | LOC: LAB 06:29 | PROVIDERS: ATTEND Internal Medicine | DX: K63.4 Enteroptosis (principal) | CPT/HCPCS: 36415; 82565; 84520 ==

== ENCOUNTER → 2024-05-21 | Outpatient (CLI) | payer BC ==
[2024-05-21 11:51] LABS: Basophils # (auto) 0 10 ^3/uL (0-0.2); Basophils % (auto) 0.3 % (0.0-2.0); Eosinophils # (auto) 0.1 10 ^3/uL (0-0.8); Eosinophils % (auto) 1.4 % (0.0-7.0); Hematocrit 35.1 % (41.0-53.0); Hemoglobin 12.5 g/dL (13.5-17.5); Lymphocytes # (auto) 0.9 10 ^3/uL (0.4-5.4); Lymphocytes % (auto) 16.7 % (10.0-50.0); Mean Corpuscular Hemoglobin 32.4 pg (28.0-32.0); Mean Corpuscular Hgb Conc. 35.5 g/dL (32.0-36.0); Mean Corpuscular Volume 91.2 fL (80.0-100.0); Monocytes # (auto) 0.5 10 ^3/uL (0-1.3); Neutrophils # (auto) 4.1 10 ^3/uL (1.6-8.6); Neutrophils % (auto) 72.6 % (37.0-80.0); Platelet Count (auto) 192 10^3/uL (140-450); Red Blood Cells 3.85 10^6/uL (4.5-5.90); Red Cell Distribution Width 14.1 % (11.8-14.3); White Blood Cell 5.7 10^3/uL (4.4-10.8)
[2024-05-21 12:35] LABS: Prostate Specific Antigen 1.17 ng/mL (0.0-4.0)
[2024-05-21 12:38] LABS: Alanine Aminotransferase 16 U/L (7-40); Alkaline Phosphatase 96 U/L (46-116); Anion Gap 4 (5-15); Aspartate Aminotransferase 14 U/L (13-40); BUN/Creatinine Ratio 14.3 (10.0-20.0); Blood Urea Nitrogen 17 mg/dL (9-23); Calcium 9.7 mg/dL (8.7-10.4); Carbon Dioxide 29 mmol/L (20-31); Chloride 107 mmol/L (98-107); Glucose 130 mg/dL (74-106); Potassium 4.3 mmol/L (3.5-5.1); Sodium 140 mmol/L (136-145)
[2024-05-21 12:39] LABS: Bilirubin, Total 0.8 mg/dL (0.2-1.0); Total Protein 6.1 g/dL (5.7-8.2)
== END | disposition home or self-care (01) ==
LOC: LAB 11:31
PROVIDERS: ATTEND Internal Medicine
DX: I10 Essential (primary) hypertension (principal); I25.10 Atherosclerotic heart disease of native coronary artery without angina pectoris; D64.9 Anemia, unspecified; N40.0 Benign prostatic hyperplasia without lower urinary tract symptoms
CPT/HCPCS: 36415; 80053; 82607; 83540; 83615; 84153; 85025

== ENCOUNTER → 2024-11-21 | Outpatient (CLI) | payer BC ==
[~2024-11-21] VITALS: Ht 180.3 cm; Wt 83.9 kg
[~2024-11-21] MED LIST changes: +ADENOSINE 70 MG in GIVE UN-DILUTED 0 ML IV ONE; +ADENOSINE 90 MG/30 ML INJ IV ONE
== END | disposition home or self-care (01) ==
LOC: Rad HDHVI 14:17
PROVIDERS: ATTEND Internal Medicine Cardiovascular Disease
DX: I49.1 Atrial premature depolarization (principal); E78.00 Pure hypercholesterolemia, unspecified; I48.0 Paroxysmal atrial fibrillation; I11.0 Hypertensive heart disease with heart failure; I50.33 Acute on chronic diastolic (congestive) heart failure; J44.9 Chronic obstructive pulmonary disease, unspecified; I25.10 Atherosclerotic heart disease of native coronary artery without angina pectoris; R06.00 Dyspnea, unspecified; Z82.49 Family history of ischemic heart disease and other diseases of the circulatory system
CPT/HCPCS: 78452; 93017; A9500; J0153

== ENCOUNTER → 2025-01-14 | Outpatient (CLI) | payer BC ==
[~2025-01-14] MED LIST changes: -ADENOSINE 70 MG in GIVE UN-DILUTED 0 ML IV ONE; -ADENOSINE 90 MG/30 ML INJ IV ONE
[2025-01-14 10:18] LABS: Urine Bacteria None Seen /hpf (None Seen)
[2025-01-14 10:32] LABS: Basophils # (auto) 0 10 ^3/uL (0-0.2); Basophils % (auto) 0.4 % (0.0-2.0); Eosinophils # (auto) 0 10 ^3/uL (0-0.8); Eosinophils % (auto) 0.7 % (0.0-7.0); Hematocrit 35.7 % (41.0-53.0); Hemoglobin 12.8 g/dL (13.5-17.5); Lymphocytes # (auto) 0.8 10 ^3/uL (0.4-5.4); Lymphocytes % (auto) 12.8 % (10.0-50.0); Mean Corpuscular Hemoglobin 32.2 pg (28.0-32.0); Mean Corpuscular Hgb Conc. 35.9 g/dL (32.0-36.0); Mean Corpuscular Volume 89.6 fL (80.0-100.0); Monocytes # (auto) 0.6 10 ^3/uL (0-1.3); Monocytes % (auto) 9.4 % (0.0-12.0); Neutrophils # (auto) 4.7 10 ^3/uL (1.6-8.6); Neutrophils % (auto) 76.7 % (37.0-80.0); Nucleated Red Blood Cells % 0.1 %; Platelet Count (auto) 228 10^3/uL (140-450); Red Blood Cells 3.98 10^6/uL (4.5-5.90); Red Cell Distribution Width 14.1 % (11.8-14.3); White Blood Cell 6.1 10^3/uL (4.4-10.8)
[2025-01-14 10:49] LABS: Urine Blood Negative /uL (Negative); Urine Clarity Clear (Clear); Urine Color Yellow (Yellow); Urine Mucus FEW (None Seen); Urine Protein, UAD Negative (Negative); Urine Squamous Epithelial Cell None Seen /hpf (<5); Urine Urobilinogen Normal (Negative); Urine WBC 1 /HPF (0-3); Urine pH 6.5 (5.0-9.0)
[2025-01-14 11:01] LABS: Alanine Aminotransferase 19 U/L (7-40); Albumin 4.2 g/dL (3.2-4.8); Alkaline Phosphatase 89 U/L (46-116); Anion Gap 7 (5-15); Aspartate Aminotransferase 21 U/L (13-40); BUN/Creatinine Ratio 11.9 (10.0-20.0); Blood Urea Nitrogen 13 mg/dL (9-23); Calcium 9.9 mg/dL (8.7-10.4); Carbon Dioxide 27 mmol/L (20-31); Chloride 104 mmol/L (98-107); Cholesterol 96 mg/dL (< 200); Glucose 95 mg/dL (74-106); HDL Cholesterol 46 mg/dL (40-59); LDL Cholesterol 41 mg/dL (< 100); Potassium 4.7 mmol/L (3.5-5.1); Sodium 138 mmol/L (136-145); Triglycerides 39 mg/dL (< 150)
[2025-01-14 11:02] LABS: Bilirubin, Total 1.8 mg/dL (0.2-1.0)
[2025-01-14 11:50] LABS: Erythrocyte Sedimentation Rate 2 mm/hr (0-20)
== END | disposition home or self-care (01) ==
LOC: LAB 10:03
PROVIDERS: ATTEND Internal Medicine
DX: I10 Essential (primary) hypertension (principal); I25.10 Atherosclerotic heart disease of native coronary artery without angina pectoris; E78.00 Pure hypercholesterolemia, unspecified
CPT/HCPCS: 36415; 80053; 80061; 81001; 84439; 84443; 85025; 85652

== ENCOUNTER 2025-05-20 08:59 | Outpatient (CLI) | payer BC ==
[2025-05-20 09:10] VITALS: BP 130/71; PULSE 58; RESP 16; O2SAT 99
[2025-05-20 09:35] VITALS: BP 145/71; PULSE 56; RESP 16; O2SAT 99
[2025-05-20] MEDS ORDERED: LISI20TA56 PO (11:11)
[2025-05-20] MEDS ORDERED: FLUT250M2 INH (11:13)
[2025-05-20] MEDS ORDERED: METO-6 PO (11:19)
== END 2025-05-20 17:00 | disposition home or self-care (01) ==
LOC: CHF HDHVI 08:59
PROVIDERS: ATTEND Internal Medicine Cardiovascular Disease
DX: Z01.810 Encounter for preprocedural cardiovascular examination (principal); I25.10 Atherosclerotic heart disease of native coronary artery without angina pectoris
CPT/HCPCS: 93005; G0463

== ENCOUNTER 2025-05-20 11:02 | Outpatient (CLI) | payer BC ==
[2025-05-20] MEDS ORDERED: LISI20TA56 PO (11:11)
[2025-05-20] MEDS ORDERED: FLUT250M2 INH (11:13)
[2025-05-20] MEDS ORDERED: METO-6 PO (11:19)
[2025-05-20 13:32] LABS: Hematocrit 36.8 % (41.0-53.0); Hemoglobin 13.2 g/dL (13.5-17.5); Mean Corpuscular Hemoglobin 32.6 pg (28.0-32.0); Mean Corpuscular Volume 90.7 fL (80.0-100.0); Nucleated Red Blood Cells % 0.2 %
[2025-05-20 13:49] LABS: Alanine Aminotransferase 29 U/L (7-40); Albumin 4.2 g/dL (3.2-4.8); Alkaline Phosphatase 115 U/L (46-116); Anion Gap 9 (5-15); BUN/Creatinine Ratio 11.0 (10.0-20.0); Blood Urea Nitrogen 12 mg/dL (9-23); Calcium 9.2 mg/dL (8.7-10.4); Carbon Dioxide 27 mmol/L (20-31); Chloride 103 mmol/L (98-107); Glucose 96 mg/dL (74-106); Potassium 4.5 mmol/L (3.5-5.1); Sodium 139 mmol/L (136-145); Total Protein 6.4 g/dL (5.7-8.2)
[2025-05-20 13:50] LABS: Bilirubin, Total 1.4 mg/dL (0.2-1.0)
[2025-05-20 13:57] LABS: Iron 95.0 ug/dL (65-175)
[2025-05-20 14:00] LABS: Total Iron Binding Capacity 261.0 ug/dL (250-425)
== END 2025-05-20 17:00 | disposition home or self-care (01) ==
LOC: LAB 11:02
PROVIDERS: ATTEND Internal Medicine
DX: I10 Essential (primary) hypertension (principal); D64.9 Anemia, unspecified; I25.10 Atherosclerotic heart disease of native coronary artery without angina pectoris
CPT/HCPCS: 36415; 80053; 83540; 83550; 85025; 85652

== ENCOUNTER 2025-05-28 10:21 | Inpatient (IN) | payer BC ==
[2025-05-20 13:34] LABS: Hematocrit 36.9 % (41.0-53.0); Hemoglobin 13.1 g/dL (13.5-17.5); Mean Corpuscular Hemoglobin 32.3 pg (28.0-32.0); Mean Corpuscular Volume 91.2 fL (80.0-100.0); Nucleated Red Blood Cells % 0.1 %
[2025-05-20 13:40] LABS: Chloride 103 mmol/L (98-107); Potassium 4.4 mmol/L (3.5-5.1); Sodium 138 mmol/L (136-145)
[2025-05-20 13:41] LABS: Anion Gap 8 (5-15); Carbon Dioxide 27 mmol/L (20-31)
[2025-05-20 13:42] LABS: Calcium 9.1 mg/dL (8.7-10.4)
[2025-05-20 13:46] LABS: Glucose 96 mg/dL (74-106)
[2025-05-20 13:47] LABS: BUN/Creatinine Ratio 10.0 (10.0-20.0); Blood Urea Nitrogen 11 mg/dL (9-23)
[2025-05-20 13:50] LABS: INR 1.02 (0.9-1.15); Partial Thromboplastin Time 26.2 SEC (24.5-34.5); Prothrombin Time 10.8 sec (9.3-11.8)
[~2025-05-28] VITALS: Ht 180.3 cm; Wt 85.1 kg
[2025-05-28] VITALS (12 sets, daily range): BP systolic 112–166; BP diastolic 55–82; PULSE 55–63; RESP 12–18; TEMP 97.8–98.3; O2SAT 97–99
[~2025-05-28 10:21] MED LIST changes: +FLUT250M2 INH; +METO-6 PO
[2025-05-28] MEDS: IOHEXOL 350 MG/ML 100ML IJ ONE ×3 (11:40→14:49)
[2025-05-28] MEDS: LIDOCAINE 2%HCL (LOCAL ANESTH.) INJ 20ML MDV ONE (12:10)
[2025-05-28] MEDS: ANGIOMAX 250 MG VIAL IV ONE ×2 (12:17→14:44)
[2025-05-28] MEDS: SODIUM CHL 0.9% 50 ML ONE ×2 (12:18→14:44)
[2025-05-28] MEDS: MIDAZOLAM HCL 2MG/2ML 2ml VIAL (1mg/ml) ONE (12:18)
[2025-05-28] MEDS: fentaNYL CITRATE 100 MCG/2 ML VL ONE (12:18)
[2025-05-28] MEDS: ATROPINE SULF 1 MG/10ml SYR ONE (14:26)
[2025-05-28] MEDS: EPINEPHrine HCL 1 MG/10 ML SYRG ONE (14:26)
[2025-05-28] MEDS ORDERED: MORPHINE SULFATE INJ 2 MG/ml SYRG IV PRN (15:15)
[2025-05-28] MEDS ORDERED: ACETAMINOPHEN 325 MG TAB PO PRN (15:15)
[2025-05-28] MEDS ORDERED: NITROGLYCERIN 0.4 MG SL TAB SL PRN (15:15)
--- NOTE | 2025-05-28 16:53 | DVHHP ---
ADMIT DATE: 05/28/2025 HISTORY OF PRESENT ILLNESS: The patient is 75 years old with a history of coronary artery disease, history of hypertension, hyperlipidemia. He had previous angioplasty with stent placed of the proximal left anterior descending artery. The patient is now having diminished left ventricular ejection fraction, which has progressed with anterior and lateral wall ischemia noted on Cardiolite. Echocardiogram similarly shows left ventricular dysfunction with EF around 35%. The patient is having increasing symptoms of shortness of breath and chest pain and because of the above presentation, it was felt that the patient should undergo coronary angiography with the possibility of angioplasty. Risks and benefits were explained to the patient, the patient understands and agrees. PAST MEDICAL HISTORY: Pertinent medical history is significant for as described above. SOCIAL HISTORY: Negative. FAMILY HISTORY: Negative. REVIEW OF SYSTEMS: The patient denies any fever, chills, melena, or hematochezia. No history of rheumatologic disorders or connective tissue disorder. No history of irritable bowel syndrome or inflammatory bowel disease. No history of COPD at this time. No remote history of tobacco use, however. No history of CVA. No history of movement disorder. No history of seizure activity. No history of any peripheral vascular disease at this time. PHYSICAL EXAMINATION: VITAL SIGNS: Blood pressure is 132/70, pulse 60 and regular. O2 saturation 98% on room. HEENT AND NECK: Pupils are reactive. Funduscopic exam shows no AV nicking. No exudates. No papilledema. No JVD appreciated. Carotid pulses are 2+ symmetrical. Normal upstroke and contour. Thyroid within normal limits. Oral mucosa moist. Posterior pharynx without any exudates. PULMONARY: Clear to auscultation in all lung tabares. CARDIOVASCULAR: Regular rate. PMI is slightly diffuse, inferiorly displaced. ABDOMEN: Soft, nontender. Normal bowel sounds. Stool guaiac is negative. EXTREMITIES: 1+ pulses, 1+ edema. ASSESSMENT AND PLAN: Thus, the patient with a classic manifestation of coronary artery disease with diminished left ventricular ejection fraction. The patient is now to undergo coronary angiography with the possibility of angioplasty and stent placement. Champ Waters MD SA/SYED TID: [id number] RECEIPT: [id number]
--- NOTE | 2025-05-28 17:16 | DVHOP ---
DATE OF SURGERY: 05/28/2025 PROCEDURES PERFORMED: * Selective left and right coronary angiography. * Ventriculogram. * Right iliac angiography. * Conscious sedation. * Intravascular ultrasound of the left main, left anterior descending artery and the circumflex. * Shockwave thrombectomy of the left main, left anterior descending artery and the circumflex artery for angioplasty with stent placement extending from the proximal LAD into the left main and to proximal circumflex into the left main. In the LAD, it was a 3.0 x 12 mm [place] Michael stent and in the circumflex a 2.5 x 12 [place] Michael stent. COMPLICATIONS: There were no complications. The patient tolerated the procedure well. DESCRIPTION OF PROCEDURE: The patient was prepped and draped under sterile condition. 1% Xylocaine was used to anesthetize the right groin. Using Cook needle, the right femoral artery was engaged with Seldinger technique. A 6-Libyan sheath was placed in the right femoral artery. Using 6-Libyan JL4 catheter and a 6-Libyan JR4 catheter, selective left and right coronary angiography was performed. Using a 6-Libyan pigtail catheter, ventriculogram was done. Then, following that, a 6-Libyan diagnostic system was exchanged for a 6-Libyan interventional system. Using a 6-Libyan XB 3.5 guide catheter, the left main was cannulated. Using a Choice PT extra support wire, the circumflex lesion was then crossed. Similarly, a second wire was placed into the ramus branch. A third wire Choice PT extra support wire was placed in the left anterior descending artery. Following the placement of the left anterior descending artery, the ramus branch run-through wire was then removed. Then, an intravascular ultrasound was performed of the left main, LAD as well as the circumflex artery. It showed the patient to have a 90% narrowing of the distal left main extending into the left anterior descending artery as well as into the circumflex as well. Following that, a 3-shockwave treatment was performed into the left main, left anterior descending artery, and the circumflex. The ramus branch actually has high takeoff of a diagonal branch. It appears as though, so it is not involved directly in the left main ostium. Therefore, we were able to salvage by putting the stent just a little proximal to the takeoff of the diagonal/ramus branch. The 3.0 x 12 mm stent was placed into the proximal left anterior descending extending into the left main, deployed at 14 atmospheres and the circumflex artery stent was deployed. A 2.5 x 12 mm Michael stent was deployed into the proximal circumflex extending into the left main. Both stents were deployed simultaneously at 14 atmospheres. Following the dilatation, the stent balloons were removed. An angiogram was performed. The patient had total revascularization of the left main, LAD, and the circumflex, and there was less than 10% residual stenosis documented by intravascular ultrasound. Left ventricular function was approximately 35% by ventriculogram with an LVEDP of 5 mmHg and left ventricular systolic pressure of 132. CONCLUSION: * The patient had successful intervention of the left main, left anterior descending artery, and the circumflex artery. * It is a distal left main extending into the LAD and circumflex, and stents were deployed as described above. The right coronary artery still has a proximal 80% narrowing, which is a nondominant vessel at this time, will be staged at a later date. * EF was around 35% with an LVEDP of 5 mmHg. Champ Waters MD SA/JOVITA TID: [id number] RECEIPT: [id number]
[2025-05-28] MEDS: ATORVASTATIN 20 MG TAB PO SCH (18:00)
[2025-05-28] MEDS: SUCRALFATE 1 GM/10 ML ORAL SUSP PO SCH (18:00)
[2025-05-28] MEDS: AMIODARONE HCL 200 MG TAB PO SCH (21:42)
[2025-05-28] MEDS: Fluticasone-Salmeterol (Advair Diskus 250/50) IN SCH (21:43)
[2025-05-28] MEDS: RANOLAZINE ER 500 MG TAB PO SCH (21:43)
[2025-05-29 00:53] VITALS: BP 127/84; PULSE 65; RESP 18; TEMP 98.1; O2SAT 96
[2025-05-29 05:00] VITALS: BP 130/80; PULSE 66; RESP 18; TEMP 98; O2SAT 99
[2025-05-29 08:07] VITALS: PULSE 66
[2025-05-29 09:04] VITALS: BP 124/72; PULSE 65; RESP 18; TEMP 97.8; O2SAT 98
[2025-05-29] MEDS: [UNRECOGNIZED DRUG - REMARK] PO SCH (09:57)
[2025-05-29] MEDS: LISINOPRIL 20 MG TAB PO SCH (09:58)
[2025-05-29] MEDS: METOPROLOL SUCCINATE XL 50 MG TAB PO SCH (09:59)
[2025-05-29] MEDS: PANTOPRAZOLE 40 MG TAB PO SCH (09:59)
[2025-05-29] MEDS: CLOPIDOGREL BISULFATE 75 MG TAB PO SCH (09:59)
--- NOTE | 2025-05-29 12:25 | DVHDS2 ---
Discharge Summary Date of Admission May 28, 2025 at 15:14 Date of Discharge: May 29, 2025 Labs/Diagnostic Data: Laboratory Results Test 05/20/25 11:21 White Blood Count 6.7 10^3/uL (4.4-10.8) Red Blood Count 4.05 10^6/uL (4.5-5.90) Hemoglobin 13.1 g/dL (13.5-17.5) Hematocrit 36.9 % (41.0-53.0) Mean Corpuscular Volume 91.2 fL (80.0-100.0) Mean Corpuscular Hemoglobin 32.3 pg (28.0-32.0) Mean Corpuscular Hemoglobin Concent 35.4 g/dL (32.0-36.0) Red Cell Distribution Width 13.8 % (11.8-14.3) Platelet Count 224 10^3/uL (140-450) Mean Platelet Volume 8.3 fL (6.9-10.8) Neutrophils (%) (Auto) 75.6 % (37.0-80.0) Lymphocytes (%) (Auto) 14.9 % (10.0-50.0) Monocytes (%) (Auto) 8.0 % (0.0-12.0) Eosinophils (%) (Auto) 1.1 % (0.0-7.0) Basophils (%) (Auto) 0.4 % (0.0-2.0) Neutrophils # (Auto) 5.1 10 ^3/uL (1.6-8.6) Lymphocytes # (Auto) 1.0 10 ^3/uL (0.4-5.4) Monocytes # (Auto) 0.5 10 ^3/uL (0-1.3) Eosinophils # (Auto) 0.1 10 ^3/uL (0-0.8) Basophils # (Auto) 0 10 ^3/uL (0-0.2) Nucleated Red Blood Cells 0.1 % Prothrombin Time 10.8 sec (9.3-11.8) Prothrombin Time INR 1.02 (0.9-1.15) Activated Partial Thromboplast Time 26.2 SEC (24.5-34.5) Sodium Level 138 mmol/L (136-145) Potassium Level 4.4 mmol/L (3.5-5.1) Chloride Level 103 mmol/L (98-107) Carbon Dioxide Level 27 mmol/L (20-31) Anion Gap 8 (5-15) Blood Urea Nitrogen 11 mg/dL (9-23) Creatinine 1.10 mg/dL (0.700-1.30) Glomerular Filtration Rate Calc 70 mL/min (>90) BUN/Creatinine Ratio 10.0 (10.0-20.0) Serum Glucose 96 mg/dL (74-106) Calcium Level 9.1 mg/dL (8.7-10.4) Other Laboratory Tests 05/20/25 11:21 Brief Hx & Hospital Course: see dictated note Condition at Discharge: Fair Final Diagnosis/Problems List cad Discharge Disposition: Home Discharge Instruct/Medications Diet: Cardiac 2g Na,low cholest Activity: No Restrictions, As Tolerated Follow Up/Referral: fu with pcp/cardiology Medications: resume home meds Scheduled Amiodarone HCl (Amiodarone HCl), 200 MG PO DAILY, (Reported) Atorvastatin Calcium (Lipitor), 1 TAB PO QPM, (Reported) Cetirizine Hcl (Zyrtec Allergy), 10 MG PO DAILY, (Reported) Clopidogrel Bisulfate (Plavix), 1 TAB PO DAILY, (Reported) Fluticasone-Salmeterol (Advair Diskus 250/50), 1 PUFF INH BID, (Reported) Lactobacillus (Probiotic), 1 OR DAILY, (Reported) Lisinopril (Lisinopril), 20 MG PO DAILY, (Reported) Metoprolol Succinate (Toprol Xl), 1 TAB PO DAILY, (Reported) Pantoprazole Sodium Sesquihydr (Pantoprazole Sodium), 40 MG PO DAILY, (Reported) Ranolazine (Ranolazine ER), 1 TAB PO BID, (Reported) Sucralfate (Carafate), 1 GM PO QIDP, (Reported) Discharge Statement: "Patient was advised to return to the ER or call 911 if any headaches, dizziness, shortness of breath, chest pain, abdominal pain, bleeding, fevers, or worsening of medical condition. Patient was counseled about treatment plan, medications, possible side effects, patientverbalized understanding. All questions were answered to the best of my ability. This discharge took greater then 30 minutes in planning, reviewing documentation, counseling the patient, and discussing with other team members." ASSESSMENT ASSESSMENT Assessment cad Date of Service: May 29, 2025 Billing Provider: SAMSON LUA MD Common Visit Codes: 51759-CWT/OBS DISCH DAY >30min SAMSON LUA MD May 29, 2025 12:25
--- NOTE | 2025-05-29 12:28 | DVHPN2 ---
Date of Service: May 29, 2025 Billing Provider: SAMSON LUA MD Common Visit Codes: 95666-VBL/OBS DISCH DAY >30min Secondary Visit Codes: 08925-[id number] CARE PLAN 30 MINUTES SAMSON LUA MD May 29, 2025 12:28
--- NOTE | 2025-05-29 12:53 | DVHDS ---
DATE OF DISCHARGE: 05/29/2025 HISTORY OF PRESENT ILLNESS: The patient is a 75-year-old gentleman who was admitted because of increasing symptoms of chest pain and shortness of breath. The patient has history of hypertension, coronary artery disease and hyperlipidemia. HOSPITAL COURSE: The patient was seen in Cardiology consult by Dr. Oakes. The patient underwent coronary angiography with thrombectomy of the left main, left anterior descending and circumflex arteries with stent placement in the LAD as well as in the circumflex. The patient is now doing well and will be discharged home. The patient at this time states that he does not wish to take aspirin because of previous history of bleeding. I have told him the risk of stent closure. I will discuss this also with the soap slabber, Dr. Oakes. FINAL DIAGNOSES: Therefore: * Coronary artery disease, status post stent placement. * Hypertension. * Hyperlipidemia. ADVANCED CARE PLANNING: The patient is a full code. Time spent was 18 minutes. Time spent in discharge planning and review of plan with the patient and nursing was 38 minutes. MD KAMILA Schaffer/HERLINDA/HORACIO TID: [id number] RECEIPT: [id number]
[2025-05-29 13:00] VITALS: BP 123/64; PULSE 70; RESP 18; TEMP 98.3; O2SAT 97
== END 2025-05-29 15:30 | disposition home or self-care (01) | DRG 324 ==
LOC: CATH 10:21 → OVERFLOW 15:14 → TELE-WESTW 18:32
PROVIDERS: ADMIT Internal Medicine; ATTEND Internal Medicine
PROC: 027135Z Dilation of Coronary Artery, Two Arteries with Two Drug-eluting Intraluminal Devices, Percutaneous Approach (ICD-10-PCS; principal; 2025-05-28)
PROC: 02F Heart and Great Vessels, Fragmentation (ICD-10-PCS; 2025-05-28)
PROC: 4A023N7 Measurement of Cardiac Sampling and Pressure, Left Heart, Percutaneous Approach (ICD-10-PCS; 2025-05-28)
PROC: B2111ZZ Fluoroscopy of Multiple Coronary Arteries using Low Osmolar Contrast (ICD-10-PCS; 2025-05-28)
PROC: B2151ZZ Fluoroscopy of Left Heart using Low Osmolar Contrast (ICD-10-PCS; 2025-05-28)
PROC: B240ZZ3 Ultrasonography of Single Coronary Artery, Intravascular (ICD-10-PCS; 2025-05-28)
DX: I25.10 Atherosclerotic heart disease of native coronary artery without angina pectoris (principal); E78.5 Hyperlipidemia, unspecified; I10 Essential (primary) hypertension
CPT/HCPCS: 36415; 80048; 85025; 85610; 85730; 92928; 92978; 93458; 99152; C1874; G0378; J2250